=== PATIENT | male | born 1945 | race Caucasian/White ===

== ENCOUNTER 2016-03-14 09:18 | Emergency (ER) | payer MEDICARE, BC ==
[~2016-03-14] VITALS: Ht 172.7 cm; Wt 86.2 kg
[~2016-03-14 09:18] MED LIST: AMLO10TA2 PO; FLUT1DIS IH; HYDR25TA9 PO; LISI40TA PO
[2016-03-14 09:26] VITALS: BP 150/67
[2016-03-14] MEDS ORDERED: HYDROCODONE/APAP 5/325MG TABLET. PO ONE (10:00)
[2016-03-14] MEDS ORDERED: AMPICILLIN/SULBACTAM 3 GM in IV NORMAL SALINE 100ML 100 ML IV ONE (10:00)
--- NOTE | 2016-03-14 10:48 | RAD ---
Indication: Dog bite between the first and second metacarpals. Occurred one week ago. Pain and swelling. Technique: 3 views of the left hand are submitted for review. No comparison is available. Findings: There is no fracture or dislocation. There is no osseous lesion or bone destruction. There is no radiopaque foreign body. There is soft tissue swelling. There are mild degenerative changes. Impression: Negative for fracture. Negative for radiopaque foreign body.
[2016-03-14] MEDS ORDERED: HYDR-971 PO (10:59)
[2016-03-14] MEDS ORDERED: AMOX1TAB61 PO (10:59)
--- NOTE | 2016-03-14 10:59 | PHYS DOC ---
Past Medical History Past Medical History: COPD, Hypertension Past Surgical History: Other Additional Past Surgical Histo: CAROTID ARTERY SURG Additional Information: 1 PPD Alcohol Use: Heavy Additional Information: DRINKS 6 BEERS A DAY Drug Use: None Adult General Chief Complaint Chief Complaint: ANIMAL BITE HPI HPI Patient is a 70 year old female who presents with left hand pain and swelling. Patient reports his dog bit him on the hand on 03/06/16. He says he thoroughly cleaned the wound and was applying antibiotic ointment. Yesterday morning, he started having throbbing pain in the hand. This morning the pain became worse noticed increased swelling and redness. No drainage from the hand. No fever. The dog that bit him was his dog, he says it has received its rabies vaccines. Patient also reports that he last had a tetanus booster 2 years ago. He took a pill of leftover amoxicillin this morning prior to coming to ED. No other acute complaints. Review of Systems Review of Systems Constitutional: Denies fever or chills Respiratory: Denies cough or shortness of breath Cardiovascular: Denies chest pain GI: Denies abdominal pain, nausea, vomiting, or diarrhea Musculoskeletal: L hand pain and swelling Neurologic: Denies headache, focal weakness or sensory changes Current Medications Current Medications Current Medications Medications (Trade) Dose Ordered Sig/Lyndsey Start Time Stop Time Status Last Admin Dose Admin Acetaminophen/ Hydrocodone Bitart 2 tab 2 tab 1X ONCE 03/14/16 10:00 03/14/16 10:01 DC 03/14/16 10:08 2 TAB Ampicillin Sodium/ Sulbactam Sodium/ Sodium Chloride (Unasyn/Iv Sodium Chloride 0.9% 100ml) 100 ml @ 200 mls/hr 1X ONCE 03/14/16 10:00 03/14/16 10:29 DC 03/14/16 10:25 200 MLS/HR Allergies Allergies Allergies Coded Allergies Type Severity Reaction Last Updated Verified No Known Drug Allergies 12/11/14 No Physical Exam Physical Exam Constitutional: Well developed, well nourished, no acute distress, non-toxic appearance HENT: Normocephalic, atraumatic, bilateral external ears normal Eyes: EOMI, conjunctiva normal, no discharge Neck: Normal range of motion, no stridor Cardiovascular: Heart rate normal, regular rhythm, no murmur Lungs & Thorax: Bilateral breath sounds clear to auscultation Abdomen: Bowel sounds normal, soft, non-distended, no TTP Skin: Warm, dry, no rash Extremities: Dorsum of L hand swollen and erythematous; small scabbed abrasion noted; no fluctuance noted; no TTP over palmar surface/flexor tendons; full motor function and sensation to light touch preserved; 2+ radial pulse Neurologic: Alert and oriented X 3, no gross deficits noted Current Patient Data Vital Signs Vital Signs Date Time Temp Pulse Resp B/P Pulse Ox O2 Delivery O2 Flow Rate FiO2 03/14/16 10:08 18 96 Room Air 03/14/16 09:26 97.9 81 150/67 97.9 EKG EKG [] Radiology/Procedures Radiology/Procedures X-ray L hand: Impression: Negative for fracture. Negative for radiopaque foreign body. Course & Med Decision Making Course & Med Decision Making Pertinent Labs and Imaging studies reviewed. (See chart for details) Patient is 70 year old male who presents with L hand pain and swelling. Apparent cellulitis related to dog bite just over 1 week ago. Dose of unasyn ordered; patient UTD on tetanus booster so do not need to give that. Oral pain medication given for patient comfort. No evidence of abscess. Infection restricted to dorsum of hand, no evidence of flexor tenosynovitis. X-ray ordered to r/o abnormality such as retained tooth; radiologist read as above, soft tissue swelling noted. Patient reports pain is much better after meds. I discussed with him that I would like to admit him for IV abx as his hand is involved. Patient is adamant that he wants to go home. I again voiced my concern about outpatient management of this infection due to the hand involvement; he acknowledges this but remains insistent upon going home today. As such, I will discharge with rx for augmentin and pain medication; patient given strict instructions to follow up with PCP tomorrow. He was also given strict return precautions and has agreed to return immediately to the ED if there is any worsening of his hand, if he develops fever, etc. Dragon Disclaimer Dragon Disclaimer This electronic medical record was generated, in whole or in part, using a voice recognition dictation system. Departure Departure Impression: Primary Impression: Infected dog bite of hand Disposition: HOME, SELF-CARE Condition: STABLE Referrals: LOI DAVIS MD (PCP) Patient Instructions: Animal Bite Additional Instructions: Thank you for allowing us to provide care today in the Emergency Department. Take the provided medication as directed. Use caution after taking the pain medication as it can make you drowsy. Schedule a follow up appointment with your primary care doctor as soon as possible. Call first thing in the morning. Return promptly to the Emergency Department if you develop any new or concerning symptoms, such as worsening pain in hand or fever. Scripts Amoxicillin/Potassium Clav (Augmentin 875-125 Tablet)1 Each Tablet1 Tab PO BID # 20 TAB Prov:JACQUELINE NÚÑEZ MD 03/14/16 Hydrocodone/Apap 5-325 (Elsie 5-325 Tablet)1 Each Tablet1 Tab PO PRN Q6HRS PRN PAIN #20 TAB Prov:JACQUELINE NÚÑEZ MD 03/14/16 JACQUELINE NÚÑEZ MD Mar 14, 2016 10:59
== END 2016-03-14 11:12 | disposition home or self-care (01) ==
LOC: ER 09:18
DX: S61.452A Open bite of left hand, initial encounter (principal); L08.9 Local infection of the skin and subcutaneous tissue, unspecified; I10 Essential (primary) hypertension; J44.9 Chronic obstructive pulmonary disease, unspecified; F17.210 Nicotine dependence, cigarettes, uncomplicated; F10.10 Alcohol abuse, uncomplicated; W54.0XXA Bitten by dog, initial encounter; Y93.89 Activity, other specified; Y92.89 Other specified places as the place of occurrence of the external cause; Y99.8 Other external cause status
CPT/HCPCS: 73130; 96365; 99284; J0295

== ENCOUNTER → 2016-08-06 | Outpatient (CLI) | payer MEDICARE, BC ==
[~2016-08-06] MED LIST changes: +AMOX1TAB61 PO; +ASPI-482 PO; +GADOBUTROL 10 MMOL/10 ML VIAL IV ONE; +HYDR-971 PO
--- NOTE | 2016-08-06 11:03 | KCIC ---
Clinical Indications: Carotid stenosis. Exam : Carotid Duplex with Grayscale Ultrasound and Spectral and Color Doppler Analysis: PQRS Compliance Statement - Stenosis calculations for CT, MR and conventional angiography are based upon measurement of the distal ICA diameter in accordance with the NASCET methodology. Stenosis calculations for carotid ultrasound studies are derived from validated velocity criteria which are known to correlate with the NASCET methodology. Comparison study: None available. Findings: The common, internal and external carotid arteries were examined by grayscale, color and spectral Doppler ultrasound. Bilateral carotid plaque is noted. There is moderate stenosis in the left ECA. Flow in both vertebral arteries was antegrade and normal. The following are the velocities and ratios in the carotid arteries on both sides: RIGHT ICA PV: 144cm/sec RIGHT CCA PV: 87cm/sec RIGHT ICA ED: 33cm/sec RIGHT IC/CCPV: 1.66 RIGHT VERTEBRAL: antegrade flow RIGHT % STENOSIS: 50-69 percent stenosis LEFT ICA PV: 77cm/sec LEFT CCA PV: 51cm/sec LEFT ICA ED: 10cm/sec LEFT IC/CCPV: 1.51 LEFT VERTEBRAL: antegrade flow LEFT % STENOSIS: 50% <50% ICA Stenosis: PSV < 125cm/s (EDV < 40cm/s; SVR < 2.0) 50-69% ICA Stenosis: PSV < 125-229cm/s (EDV 40-99cm/s; SVR 2.0-3.9) >70% ICA Stenosis: PSV > 230cm/s (EDV >100cm/s; SVR >4.0) Impression: Bilateral carotid plaque resulting in 50 F 60 percent stenosis of the right internal carotid artery less than 50 percent stenosis on the left. Antegrade flow is noted in both vertebral arteries. Electronically signed by: Garrett Lira MD (08/06/2016 11:00 AM)
--- NOTE | 2016-08-06 12:38 | KCIC ---
MR BRAIN WITH CONTRAST Indication: Double vision TECHNIQUE: Axial diffusion-weighted imaging was obtained. Additional axial FLAIR, and axial T2 weighted images were obtained. Sagittal and axial T1-weighted imaging was obtained prior to the administration of intravenous contrast material. Additional sagittal, axial, and coronal T1-weighted imaging was obtained after the administration of gadolinium based intravenous contrast material. FINDINGS: There are few small scattered foci of subcortical FLAIR signal hyperintensity in the bilateral cerebral hemispheres. This is nonspecific but probably related to sequelae of chronic small vessel ischemic disease. No abnormal enhancement identified. No restricted diffusion to indicate an acute infarct. No evidence of acute intracranial hemorrhage. No extra-axial fluid collections are identified. There is no mass effect or midline shift. Ventricular size is appropriate. Basal cisterns are patent. Visualized flow voids are normal in course, caliber, and signal. Globes and orbits are unremarkable. There is mild mucoperiosteal thickening of the paranasal sinuses. There is partial opacification of the right mastoid air cells. IMPRESSION: No acute or recent infarct. No abnormal enhancement or mass. No acute intracranial abnormality. Mild mucoperiosteal thickening of the paranasal sinuses and partial fluid opacification of the right mastoid air cells. Electronically signed by: Garrett Lira MD (08/06/2016 12:35 PM)
== END | disposition home or self-care (01) ==
LOC: KCIC US 09:45
PROVIDERS: ATTEND Family Medicine
DX: I65.23 Occlusion and stenosis of bilateral carotid arteries (principal)
CPT/HCPCS: 70553; 93880; A9585

== ENCOUNTER → 2016-09-27 | Outpatient (CLI) | payer MEDICARE, BC ==
[~2016-09-27] MED LIST changes: -GADOBUTROL 10 MMOL/10 ML VIAL IV ONE
--- NOTE | 2016-09-27 14:24 | CARD ---
APPROVED REPORT EXAM: Two-dimensional and M-mode echocardiogram with Doppler, color Doppler with contrast. Other Information Quality : Average Rhythm : NSR INDICATION Amaurosis fugax of the left eye Echo Enhancing Agent Indication: Rule Out Septal Defect Agent/Amount Used: Agitated Saline 8mL 2D DIMENSIONS Left Atrium(2D)3.3 (1.6-4.0cm)IVSd0.9 (0.7-1.1cm) Aortic Root(2D)3.5 (2.0-3.7cm)LVDd5.1 (3.9-5.9cm) LVOT Diameter2.1 (1.8-2.4cm)PWd0.9 (0.7-1.1cm) LVDs3.3 (2.5-4.0cm)FS (%) 35.9 % SV80.7 mlLVEF(%)65.1 (>50%) Aortic Valve AoV Peak Ronnell.136.6cm/sAoV VTI31.1cm AO Peak GR.7.5mmHgLVOT Peak Ronnell.144.9cm/s AO Mean GR.5mmHgAVA (VMAX)3.58cm2 Mitral Valve MV E Icnpfaei10.2cm/sMV DECEL [id number] MV A Ylduwrdx01.2cm/sE/A Ratio1.2 MV A [id number] LEFT VENTRICLE The left ventricle is normal size. There is normal left ventricular wall thickness. Left ventricle sy stolic function is normal. The Ejection Fraction is 60-65%. There is normal LV segmental wall motion. The left ventricular diastolic function and filling is normal for age. There is no ventricular septa l defect visualized. RIGHT VENTRICLE The right ventricle is normal size. The right ventricular systolic function is normal. ATRIA The left atrium size is normal. The right atrium size is normal. The interatrial septum is intact wit h no evidence for an atrial septal defect or patent foramen ovale as noted on 2-D or Doppler imaging. Injection of bubbles documented no interatrial shunt. AORTIC VALVE The aortic valve is mildly calcified. The aortic valve is trileaflet. Doppler and Color Flow revealed no significant aortic regurgitation. There is no significant aortic valvular stenosis. MITRAL VALVE The mitral valve is normal in structure and function. There is no mitral valve stenosis. Doppler and Color Flow revealed no mitral valve regurgitation noted. TRICUSPID VALVE The tricuspid valve is normal in structure and function. Doppler and Color Flow revealed no tricuspid valve regurgitation noted. Unable to accurately estimate PA pressure. There is no tricuspid valve st enosis. PULMONIC VALVE The pulmonic valve is not well visualized. Doppler and Color Flow revealed no pulmonic valvular regur gitation. There is no pulmonic valvular stenosis. GREAT VESSELS The aortic root is normal in size. Pulmonary veins not recorded. The IVC is normal in size and collap ses >50% with inspiration. PERICARDIAL EFFUSION There is no evidence of significant pericardial effusion. Critical Notification Critical Value: No <Conclusion> Left ventricle systolic function is normal. The Ejection Fraction is 60-65%. There is normal LV segmental wall motion. There is no evidence of significant pericardial effusion. Injection of bubbles documented no interatrial shunt.
== END | disposition home or self-care (01) ==
LOC: ECHO 10:46
PROVIDERS: ATTEND Family Medicine
DX: G45.3 Amaurosis fugax (principal)
CPT/HCPCS: C8929

== ENCOUNTER → 2016-10-01 | Outpatient (CLI) | payer MEDICARE, BC ==
--- NOTE | 2016-10-01 15:06 | KCIC ---
INDICATION: Right hip pain for 2 weeks. TECHNIQUE: 2 views of the right hip and an AP view of the pelvis are submitted for review. No comparison is available. FINDINGS: There is moderate to severe narrowing of the right hip joint most notably superiorly. There is acetabular spurring. There is slight remodeling of the femoral head. No fracture or dislocation is identified. Left iliac crest is clipped from the AP pelvis. The bony pelvis appears intact. There are vascular calcifications. Degenerative changes in the left hip are mild. 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 Electronically signed by: Hamlet Bowens MD (10/01/2016 3:03 PM) [id number]
--- NOTE | 2016-10-01 15:19 | KCIC ---
INDICATION: Lumbar strain with right radiculopathy. Pain for 2 weeks. TECHNIQUE: Sagittal T1, sagittal T2, sagittal STIR, axial T1, and axial T2 sequences are provided. No comparison is available. FINDINGS: There is no malalignment. There is no marrow edema. There is no worrisome marrow lesion. There is disc desiccation, mild and most notable at L4-L5. Disc height is relatively maintained. Conus medullaris is normal in signal intensity and in position. Subcutaneous edema is noted. Only partially included is infrarenal abdominal aortic aneurysm measuring 3.7 cm transverse, AP dimension not entirely included. The numbering system assumes 5 lumbar type vertebral bodies. Findings by individual level are as follows: L1-L2, L2-L3: There is no canal or foraminal compromise. L3-L4: Minimal disc bulge and facet hypertrophy are noted with minimal foraminal narrowing. L4-L5: Mild disc bulge and mild facet and ligamentum flavum hypertrophy are noted. There is no canal stenosis, midline AP diameter of the thecal sac is 12 mm. There is mild lateral recess narrowing bilaterally. There is moderate foraminal narrowing on the right and mild to moderate foraminal narrowing on the left. There is a small left subarticular annular fissure. L5-S1: Mild disc bulge is noted with minimal foraminal narrowing. IMPRESSION: 1. Mild degenerative disc disease and facet and ligamentum flavum hypertrophy are noted in the lumbar spine. Findings are greatest at L4-L5. 2. Partially included infrarenal abdominal aortic aneurysm. Electronically signed by: Hamlet Bowens MD (10/01/2016 3:15 PM) [id number]
== END | disposition home or self-care (01) ==
LOC: KCIC MRI 14:01
PROVIDERS: ATTEND Physical Medicine & Rehabilitation
DX: M16.11 Unilateral primary osteoarthritis, right hip (principal); S39.012A Strain of muscle, fascia and tendon of lower back, initial encounter; M51.36 Other intervertebral disc degeneration, lumbar region; X58.XXXA Exposure to other specified factors, initial encounter; Y93.89 Activity, other specified; Y92.89 Other specified places as the place of occurrence of the external cause; Y99.8 Other external cause status
CPT/HCPCS: 72148; 72170; 73502

== ENCOUNTER → 2016-11-08 | Outpatient (CLI) | payer MEDICARE, BC ==
[~2016-11-08] MED LIST changes: +CHOL100013 PO; +MULT1TAB52 PO; +NAPR500T3 PO; +OMEG1CAP6 PO; +PRED2.5T PO
[2016-11-08 08:47] LABS: BASO % 1 % (0-3); EOS % 4 % (0-3); HEMATOCRIT 40.4 % (39.0-53.0); HEMOGLOBIN 13.8 g/dL (13.0-17.5); LYMPH # 1.8 x10^3/uL (1.0-4.8); LYMPH % 32 % (24-48); MEAN CORPUSCULAR HEMOGLOBIN 35 pg (25-35); MEAN CORPUSCULAR HGB CONC 34 g/dL (31-37); MEAN CORPUSCULAR VOLUME 102 fL (79-100); MONO % 8 % (0-9); NEUT % 56 % (31-73); PLATELET COUNT 252 x10^3/uL (140-400); RED BLOOD COUNT 3.97 x10^6/uL (4.30-5.70); RED CELL DISTRIBUTION WIDTH 12.9 % (11.5-14.5); WHITE BLOOD COUNT 5.6 x10^3/uL (4.0-11.0)
[2016-11-08 08:57] LABS: INR 1.1 (0.8-1.1); PROTHROMBIN TIME PATIENT 13.2 SEC (11.7-14.0)
[2016-11-08 09:13] LABS: ALBUMIN 3.6 g/dL (3.4-5.0); CALCIUM 9.1 mg/dL (8.5-10.1); CREATININE 0.8 mg/dL (0.7-1.3); GFR 95.8; POTASSIUM 5.3 mmol/L (3.5-5.1)
[2016-11-08 09:38] LABS: BILIRUBIN,URINE NEGATIVE (NEG); GLUCOSE,URINE NEGATIVE (NEG); NITRITE,URINE NEGATIVE (NEG); PH,URINE 7.5; PROTEIN,URINE NEGATIVE (NEG-TRACE)
[2016-11-08 09:52] LABS: SQUAMOUS EPITHELIAL CELL,UR FEW /LPF
[2016-11-08 10:08] LABS: RBC,URINE RARE /HPF (0-2); WBC,URINE RARE /HPF (0-4)
[2016-11-08 10:09] LABS: BACTERIA,URINE FEW /HPF (0-FEW)
--- NOTE | 2016-11-08 12:17 | EKG ---
[facility] [address] [place] [address] Test Date: 2016-11-08 Test Time: 12:15:13 Pat Name: JN CARDONA Department: Room: Gender: Us Administrative Law Judge: FABIAN : 1945 Requested By: ABHIJIT OMER Order Number: [id number] Reading MD: Richie Brock Measurements Intervals [place] Rate: 62 P: MT: QRS: 66 QRSD: 80 T: 63 QT: 376 QTc: 384 Interpretive Statements SR Electronically Signed On 11-08-2016 13:46:31 CDT by Richie Brock
== END | disposition home or self-care (01) ==
LOC: SURGPAT 12:43
PROVIDERS: ATTEND Orthopaedic Surgery
DX: I10 Essential (primary) hypertension (principal); M16.11 Unilateral primary osteoarthritis, right hip; Z96.641 Presence of right artificial hip joint
CPT/HCPCS: 36415; 80048; 81001; 82040; 85025; 85610; 85651; 85730; 87641; 93005

== ENCOUNTER → 2016-11-16 | Outpatient (CLI) | payer MEDICARE, BC ==
[~2016-11-16] MED LIST changes: +IOHEXOL 240 MG/ML 50ML VIAL. PO ONE; +IOHEXOL 300 MG/ML 100ML VIAL. IV ONE
--- NOTE | 2016-11-16 10:37 | KCIC ---
CT chest, abdomen, pelvis without and with contrast History: Weight loss, smoker, 25 pound weight loss in one year, COPD Technique: Noncontrast CT imaging was performed of the chest, abdomen, pelvis. After the administration of intravenous contrast, CT imaging was performed of the chest, abdomen, pelvis. Multiplanar images are reviewed. Oral contrast was given for the CT abdomen and pelvis exam. Exposure: One or more of the following individualized dose reduction techniques were utilized for this examination: 1. Automated exposure control 2. Adjustment of the mA and/or kV according to patient size 3. Use of iterative reconstruction technique. Contrast: 100 cc Omnipaque 300 Comparison: August 01, [address], no previous CT of the abdomen and pelvis for comparison Chest CT: Findings: There is a small quantity of pericardial fluid more localized anteriorly, no adjacent enhancement. There is coronary calcification. Thoracic aortic caliber is within normal limits, no intraluminal flap. There are scattered plaque. There is no significant abnormality visualized thyroid gland. No significantly enlarged lymph nodes are identified of the chest, a few small mediastinal nodes present. There is no pneumothorax, lobar consolidation, pleural fluid. As best seen on axial images 29 and 35-37, there are now some small some nodules with indistinct margins of the superior left lower lobe in a branching distribution, largest individual nodule up to 0.4 cm. There is also new 0.4 cm nodule left lower lobe nodule with indistinct margins axial image 40. 0.5 cm right lower lobe noncalcified nodule axial image 42 series 3 is similar. There is moderate to severe centrilobular emphysema. Major airways are patent. Impression: 1. There are now some small nodules of the left lower lobe with indistinct margins, largest 0.4 cm. These are in a somewhat branching distribution. Findings are nonspecific, could be associated with various infectious etiologies including tuberculosis (post primary) in the appropriate clinical setting, also sequela of bronchiolitis or aspiration other possibilities. Small tumor emboli would be considered less likely unless known history of malignancy. Septic emboli would be considered less likely given more localized distribution. 2. There is centrilobular emphysema. 3. There is coronary calcification. CT abdomen and pelvis Findings: There are some calcifications of the renal jacki bilaterally although appear to be vascular in etiology. There is no hydronephrosis of either kidney. Both kidneys enhance symmetrically. There is a hypodense lesion of the inferior left kidney up to 1 cm, density measurements of a cyst at 9 Hounsfield units. There is no significant adrenal nodularity. There is no focal abnormality of the spleen, pancreas, or liver. The gallbladder is present without intraluminal abnormality by CT. There is infrarenal abdominal aortic aneurysm up to 3.8 cm maximal axial plane, begins about 4 cm below the left renal artery origin extending over approximately 5.3 cm in length. There is atherosclerotic calcification of the abdominal aorta, also of the proximal renal arteries and minimally near the origins of celiac and superior mesenteric arteries. There is also atherosclerotic calcification of the iliac arteries bilaterally with likely greater degree of stenoses of the common iliac artery origins bilaterally. Bowel is not significantly dilated. There is no free air or free fluid. Appendix is not clearly identified if still present. There is multilevel lumbar facet degenerative change greater inferiorly. There is more advanced osteoarthritic change of the right hip. Impression: 1. No acute abnormality is identified of the abdomen or pelvis, no significant lymphadenopathy. 2. There is infrarenal abdominal aortic aneurysm up to 3.8 cm maximal axial dimension. 3. There are stenoses of the common iliac arteries near origins. Electronically signed by: Pedro Singletary MD (11/16/2016 10:33 AM) [facility]
== END | disposition home or self-care (01) ==
LOC: KCIC CT 08:26
PROVIDERS: ATTEND Family Medicine
DX: I71.4 Abdominal aortic aneurysm, without rupture (principal); J44.9 Chronic obstructive pulmonary disease, unspecified; R63.4 Abnormal weight loss; F17.210 Nicotine dependence, cigarettes, uncomplicated
CPT/HCPCS: 71270; 74178; Q9966; Q9967

== ENCOUNTER → 2016-11-17 | Outpatient (CLI) | payer MEDICARE, BC ==
[~2016-11-17] MED LIST changes: -IOHEXOL 240 MG/ML 50ML VIAL. PO ONE; -IOHEXOL 300 MG/ML 100ML VIAL. IV ONE
--- NOTE | 2016-11-17 14:40 | RESP ---
DATE OF SERVICE: 11/17/2016 ATTENDING PHYSICIAN: Dr. Kellogg. The patient's FVC was 4.27 which is 103% predicted, FEV1 1.97 which is 65% predicted, the FEV1/FVC ratio was reduced and was 46% predicted. There was no significant change post-bronchodilator. Lung volume showed a total lung capacity of 155% predicted, residual volume 250% predicted. Diffusion capacity 62% predicted. IMPRESSION: 1. Moderate obstructive airway disease. 2. No response to bronchodilators. 3. Lung volumes consistent with hyperinflation and air trapping. 4. Mild to moderate reduction in diffusion capacity. NICOL CABEZAS MD DR: SUZI/anushka JOB#: [id number] / [id number] LOI Cunha MD
== END | disposition home or self-care (01) ==
LOC: PF 10:29
PROVIDERS: ATTEND Family Medicine
DX: J44.9 Chronic obstructive pulmonary disease, unspecified (principal)
CPT/HCPCS: 94060; 94729

== ENCOUNTER 2016-11-30 05:45 | Inpatient (IN) | payer MEDICARE, BC ==
[~2016-11-30] VITALS: Ht 172.7 cm; Wt 80.3 kg
[2016-11-30] VITALS (10 sets, daily range): BP systolic 91–123; BP diastolic 44–69
[2016-11-30] MEDS ORDERED: CELECOXIB 200 MG CAPSULE. PO PRN (06:00)
[2016-11-30] MEDS ORDERED: TRANEXAMIC ACID 1,000 MG in IV NS 50ML -- 1ST BAG INJ ONE (06:00)
[2016-11-30] MEDS ORDERED: HYDROcodone/APAP 7.5/325MG 1 TAB TABLET PO PRN (06:00)
[2016-11-30] MEDS ORDERED: MORPHINE SULFATE 5 MG, KETOROLAC 30 MG, ROPIVacaine 0.5% PF 60 ML, EPINEPHrine 0.5 MG i... INT ART ONE ×5 (06:00)
[2016-11-30] MEDS ORDERED: MORPHINE SULFATE 2 MG/ML DISP.SYRIN. IV PRN ×2 (07:00→07:30)
[2016-11-30] MEDS ORDERED: PROCHLORPERAZINE 10 MG/2 ML VIAL. IV PRN ×2 (07:00→07:30)
[2016-11-30] MEDS ORDERED: HYDROmorphone 2 MG/ML VIAL IV PRN (07:00)
[2016-11-30] MEDS ORDERED: IV RINGERS,LACTATED 1000ML 1,000 ML IV SCH (07:00)
[2016-11-30] MEDS ORDERED: LIDOCAINE 1% 1 ML SYRINGE. ID PRN (07:00)
[2016-11-30] MEDS ORDERED: fentaNYL PF VIAL 100 MCG/2 ML VIAL IV PRN ×3 (07:00→07:30)
[2016-11-30] MEDS ORDERED: ONDANSETRON PF 4 MG/2 ML VIAL. IV PRN (07:00)
[2016-11-30 07:09] LABS: INR 1.1 (0.8-1.1); PROTHROMBIN TIME PATIENT 13.3 SEC (11.7-14.0)
[2016-11-30] MEDS ORDERED: LIDOCAINE 2% PF Vial for OR 5 ML VIAL. ONE (07:14)
[2016-11-30] MEDS ORDERED: ONDANSETRON PF 4 MG/2 ML VIAL. ONE (07:14)
[2016-11-30] MEDS ORDERED: MIDAZOLAM HCL/PF 2 MG/2 ML VIAL. ONE (07:14)
[2016-11-30] MEDS ORDERED: PROPOFOL 20 ML IV ONE (07:14)
[2016-11-30] MEDS ORDERED: fentaNYL PF VIAL 100 MCG/2 ML VIAL ONE ×4 (07:14→10:52)
[2016-11-30] MEDS ORDERED: DEXAMETHASONE SOD PHOS 20 MG/5 ML VIAL. ONE (07:14)
[2016-11-30] MEDS ORDERED: FAMOTIDINE 20 MG/2 ML VIAL ONE (07:14)
[2016-11-30] MEDS ORDERED: ROCURONIUM 100 MG/10 ML VIAL. ONE (07:17)
[2016-11-30] MEDS ORDERED: CALCIUM CARBONATE 500 MG TAB.CHEW PO PRN (07:30)
[2016-11-30] MEDS ORDERED: MORPHINE SULFATE 4 MG/ML DISP.SYRIN. IV PRN (07:30)
[2016-11-30] MEDS ORDERED: oxyCODONE/APAP 7.5/325 1 TAB TABLET PO PRN (07:30)
[2016-11-30] MEDS ORDERED: oxyCODONE/APAP 5/325 1 TAB TABLET PO PRN (07:30)
[2016-11-30] MEDS ORDERED: DEXTROSE 50% 25 GM / 50ML DISP.SYRIN. IV PRN (07:30)
[2016-11-30] MEDS ORDERED: 0.9 % SODIUM CHLORIDE 10 ML DISP.SYRIN. IV PRN (07:30)
[2016-11-30] MEDS ORDERED: ACETAMINOPHEN 325 MG TABLET. PO PRN (07:30)
[2016-11-30] MEDS ORDERED: diphenhydrAMINE 50 MG/ML VIAL IV PRN (07:30)
[2016-11-30] MEDS ORDERED: HYDROcodone/APAP 10/325 1 TAB TABLET PO PRN (07:30)
[2016-11-30] MEDS ORDERED: ZOLPIDEM 5 MG TABLET. PO PRN (07:30)
[2016-11-30] MEDS ORDERED: PHENYLEPHRINE in 0.9% NACL PF 1 MG/10 ML DISP.SYRIN. IV ONE (07:57)
[2016-11-30] MEDS ORDERED: TRANEXAMIC ACID 1,000 MG in IV NS 50ML -- 2ND BAG INJ ONE (08:00)
[2016-11-30] MEDS ORDERED: ePHEDrine PF IN SALINE 50 MG/5 ML DISP.SYRIN IV ONE (08:18)
[2016-11-30] MEDS: SENNOSIDES/DOCUSATE 8.6/50MG TABLET. PO SCH (09:00)
[2016-11-30] MEDS: MULTIVITAMIN with MINERAL TABLET. PO SCH (09:00)
[2016-11-30] MEDS ORDERED: GLYCOPYRROLATE 1 MG/5 ML VIAL. ONE (09:26)
[2016-11-30] MEDS ORDERED: NEOSTIGMINE METHYLSULFATE 5 MG/5 ML SYRINGE. ONE (09:27)
[2016-11-30] MEDS ORDERED: 0.9 % SODIUM CHLORIDE 50 ML VIAL. IJ ONE ×2 (09:30→10:24)
[2016-11-30] MEDS ORDERED: VASOPRESSIN 20 UNIT/ML VIAL. ONE (09:30)
[2016-11-30] MEDS ORDERED: SEVOFLURANE > 120 MINUTES. IH ONE ×3 (10:05→10:24)
--- NOTE | 2016-11-30 10:37 | PDOC4 ---
Operative Note Operative Note Date of surgery: 11/30/2016 Preoperative diagnosis degenerative joint disease right hip Postoperative diagnosis: Same Procedure: Right total hip arthroplasty anterior approach Surgeon: Latesha Assist: Madelin Anesthesia: Gen. endotracheal Estimated blood loss 250 mL Complications: None Specimens: Femoral head to pathology Operative indications: Roberto Carlos is a 71-year-old male with progressive right hip pain unresponsive to nonoperative treatment and has severe degenerative changes on x-ray. I had gone over with him nonoperative treatment options as well as the possibility of total hip arthroplasty risks benefits postoperative course including the possibility of leg length inequality infection premature wear or loosening instability nerve or blood vessel damage medical or other anesthetic consultations among others all his questions were answered consent was obtained and he agrees to proceed with operative evaluation and treatment. Operative text: Patient was identified procedure verified patient placed in the supine position on the [place] fracture table after adequate amounts of general endotracheal anesthesia were administered and traction boots were placed all bony prominences are well-padded. After timeout was performed patient procedure identified and verified leg lengths were verified under fluoroscopy and the right hip was prepped and draped in standard sterile fashion. An incision was made just distal and lateral to the anterior superior iliac spine along the line of the tensor fascia agustina which was brought laterally rectus femoris was brought medially and circumflex vessels were coagulated with the aqua Mantis device hip capsule was split in a T fashion and femoral neck cut was made under fluoroscopic guidance with a napkin ring of bone removed and femoral head was removed and sent for pathology contents of the fovea were excised as was the labrum and reaming carried out up to a size 55 after measuring a size 52 head. A size 56 ingrowth acetabular cup was impacted into place under fluoroscopic guidance with anatomic version and a single superior screw was placed with excellent bite obtained a size 40 standard liner was placed posterior capsular release was carried out preserving the external rotators. The leg was brought into extension external rotation and adduction and the femur was prepared with the rattail rasp box osteotome and successive size broaches up to a size 6 which was noted to have excellent fit and stability a standard neck length was trial fit with a 0 head extension and then with a +4 to reproduce leg length and offset on fluoroscopic views as well as stability. Excellent stability was noted throughout range of motion, trial components were removed irrigation carried out normal saline solution and a size 6 [employer] F sticktight coated stem was tapped into place and a +4 Oxinium head tapped in place to engage the Brand taper and was reduced and had equivalent stability leg length and offset observed on the trialing. Thorough irrigation again carried out normal saline solution pain catheter mixture was injected into the joint capsule and surrounding areas pain catheter was placed as well as a Hemovac drain closure of the fascia accomplished with #1 PDS strata fix suture subcutaneous closure with buried Vicryl suture subcuticular closure with 3-0 Monocryl strata fix and a gordo dressing. Patient was returned recovery room in stable condition having tolerated procedure well. Please note that Kelli hutson assist was present for prepping draping assisting with retraction for the procedure and skin closure ABHIJIT OMER MD Nov 30, 2016 10:35
[2016-11-30] MEDS: fentaNYL PF VIAL 100 MCG/2 ML VIAL IV PRN ×2 (10:58→15:16)
--- NOTE | 2016-11-30 11:06 | RAD ---
Portable pelvis, 11/30/2016: History: Postop evaluation Comparison is made to a study from 10/01/2016. A right total hip prosthesis has been inserted in satisfactory position. A surgical drain overlies the operative site. There are scattered arterial calcifications. There is no evidence of a retained surgical instrument, needle or radiopaque sponge on this single view. IMPRESSION: No significant postoperative abnormality is detected.
[2016-11-30] MEDS: IV DEXTROSE 5 %-0.45 % NACL 1,000 ML IV SCH (13:27)
[2016-11-30] MEDS: NICOTINE 21MG PATCH. TD SCH (13:28)
[2016-11-30] MEDS ORDERED: WARFARIN 7.5 MG TABLET. PO ONE (16:00)
[2016-11-30] MEDS: FERROUS SULFATE 325 MG TABLET. PO SCH (17:08)
[2016-11-30] MEDS: KETOROLAC 30 MG, BUPIVACAINE MPF 0.25% 20 ML, EPINEPHrine 0.5 MG in TOTAL VOLUME SYRING... INT ART SCH (17:10)
[2016-11-30] MEDS: CELECOXIB 200 MG CAPSULE. PO SCH (21:20)
[2016-12-01] MEDS: IV DEXTROSE 5 %-0.45 % NACL 1,000 ML IV SCH ×3 (00:18→19:50)
[2016-12-01 03:22] VITALS: BP 98/50
[2016-12-01] MEDS: HYDROcodone/APAP 7.5/325MG 1 TAB TABLET PO PRN ×2 (04:00→16:06)
[2016-12-01] MEDS: KETOROLAC 30 MG, BUPIVACAINE MPF 0.25% 20 ML, EPINEPHrine 0.5 MG in TOTAL VOLUME SYRING... INT ART SCH (05:39)
[2016-12-01] MEDS ORDERED: MAGNESIUM HYDROXIDE 2,400 MG/30 ML ORAL.SUSP. PO PRN (06:00)
[2016-12-01 06:28] VITALS: BP 100/55
[2016-12-01 07:23] LABS: INR 1.7 (0.8-1.1); PROTHROMBIN TIME PATIENT 19.2 SEC (11.7-14.0)
[2016-12-01 07:56] LABS: HEMATOCRIT 31.4 % (39.0-53.0); HEMOGLOBIN 10.8 g/dL (13.0-17.5)
[2016-12-01] MEDS: FERROUS SULFATE 325 MG TABLET. PO SCH ×2 (08:47→16:51)
[2016-12-01] MEDS: MULTIVITAMIN with MINERAL TABLET. PO SCH (08:47)
[2016-12-01] MEDS: CELECOXIB 200 MG CAPSULE. PO SCH ×2 (08:47→21:10)
[2016-12-01] MEDS: SENNOSIDES/DOCUSATE 8.6/50MG TABLET. PO SCH (08:47)
[2016-12-01] MEDS: NICOTINE 21MG PATCH. TD SCH (08:48)
--- NOTE | 2016-12-01 10:07 | PDOC ---
PROGRESS NOTES Subjective Subjective Problems overnight:Doing well pain controlled, hip muscles feel tight , walked a bunch yesterday, wants to go home early if possible Objective Vital Signs Vital Signs Date Time Temp Pulse Resp B/P (MAP) Pulse Ox O2 Delivery O2 Flow Rate FiO2 12/01/16 08:00 Room Air 12/01/16 06:28 97.6 62 20 100/55 (70) 97 97.6 11/30/16 15:00 2.0 Physical Exam Hemovac drain and pain catheter intact leg lengths equal distal neurovascular status intact. Hip range of motion mild muscular stiffness as expected. Dressing clean dry intact Labs Laboratory Tests Test 11/30/16 06:45 12/01/16 06:30 12/01/16 06:50 Prothrombin Time 13.3 SEC (11.7-14.0) 19.2 SEC (11.7-14.0) Prothromb Time International Ratio 1.1 (0.8-1.1) 1.7 (0.8-1.1) Activated Partial Thromboplast Time 25 SEC (24-38) Hemoglobin 10.8 g/dL (13.0-17.5) Hematocrit 31.4 % (39.0-53.0) Mean Corpuscular Hemoglobin Concent 34 g/dL (31-37) Laboratory Tests Test 12/01/16 06:30 12/01/16 06:50 Prothrombin Time 19.2 SEC (11.7-14.0) Prothromb Time International Ratio 1.7 (0.8-1.1) Hemoglobin 10.8 g/dL (13.0-17.5) Hematocrit 31.4 % (39.0-53.0) Mean Corpuscular Hemoglobin Concent 34 g/dL (31-37) Imaging Intraoperative and postoperative x-rays show excellent positioning of the right total hip arthroplasty with equal leg lengths Assessment Assessment POD# [1], S/P [right total hip arthroplasty] Problems: Plan Plan of Care Coumadin as directed by anticoagulation clinic Weightbearing as tolerated no hip precautions due to anterior approach Patient is doing very well, will accelerate therapy and on track for discharge tomorrow with home and outpatient physical therapy ABHIJIT OMER MD Dec 01, 2016 10:07
[2016-12-01] MEDS ORDERED: MORPHINE SULFATE 4 MG/ML DISP.SYRIN. IV PRN (11:17)
[2016-12-01] MEDS ORDERED: WARFARIN 2 MG TABLET. PO ONE (16:00)
[2016-12-01] MEDS ORDERED: BISACODYL 10 MG SUPP.RECT. PR PRN (16:00)
[2016-12-01 18:45] VITALS: BP 121/56
[2016-12-02 04:53] LABS: INR 1.9 (0.8-1.1); PROTHROMBIN TIME PATIENT 20.4 SEC (11.7-14.0)
[2016-12-02 05:41] VITALS: BP 116/66
[2016-12-02 07:32] LABS: HEMATOCRIT 32.9 % (39.0-53.0); HEMOGLOBIN 11.3 g/dL (13.0-17.5)
[2016-12-02] MEDS: FERROUS SULFATE 325 MG TABLET. PO SCH (08:00)
[2016-12-02] MEDS: MULTIVITAMIN with MINERAL TABLET. PO SCH (08:26)
[2016-12-02] MEDS: HYDROcodone/APAP 7.5/325MG 1 TAB TABLET PO PRN (08:27)
[2016-12-02] MEDS: NICOTINE 21MG PATCH. TD SCH (08:29)
[2016-12-02] MEDS: CELECOXIB 200 MG CAPSULE. PO SCH (09:00)
[2016-12-02] MEDS: SENNOSIDES/DOCUSATE 8.6/50MG TABLET. PO SCH (09:00)
[2016-12-02] MEDS ORDERED: WARFARIN 2.5 MG TABLET. PO ONE (13:00)
[2016-12-02 14:29] VITALS: BP 125/67
--- NOTE | 2016-12-02 15:15 | PDOC ---
ORTHO PROGRESS NOTES Subjective Patient is doing well, going home today after afternoon therapy Post-op Day: 2 (S/P right CEASAR) Vitals Vital Signs Date Time Temp Pulse Resp B/P (MAP) Pulse Ox O2 Delivery O2 Flow Rate FiO2 12/02/16 14:29 97.4 75 16 125/67 (86) 97.4 12/02/16 08:26 Room Air 12/02/16 05:41 94 Labs Laboratory Tests Test 12/01/16 06:30 12/01/16 06:50 12/02/16 03:55 Prothrombin Time 19.2 SEC (11.7-14.0) 20.4 SEC (11.7-14.0) Prothromb Time International Ratio 1.7 (0.8-1.1) 1.9 (0.8-1.1) Hemoglobin 10.8 g/dL (13.0-17.5) 11.3 g/dL (13.0-17.5) Hematocrit 31.4 % (39.0-53.0) 32.9 % (39.0-53.0) Mean Corpuscular Hemoglobin Concent 34 g/dL (31-37) 34 g/dL (31-37) Laboratory Tests Test 12/02/16 03:55 Hemoglobin 11.3 g/dL (13.0-17.5) Hematocrit 32.9 % (39.0-53.0) Mean Corpuscular Hemoglobin Concent 34 g/dL (31-37) Prothrombin Time 20.4 SEC (11.7-14.0) Prothromb Time International Ratio 1.9 (0.8-1.1) Notes Patient is awake and alert. Breathing unlabored, no acute distress. Ambulates with the assistance of a walker. Incision well approximated, no drainage. Neurovascular intact Problems: (1) Degenerative joint disease of right hip Assessment and Plan DC home with home health today Follow-up in 2 weeks Problem Qualifiers (1) Degenerative joint disease of right hip: Osteoarthritis type: primary Qualified Codes: M16.11 - Unilateral primary osteoarthritis, right hip MALACHI CRUZ APRN Dec 02, 2016 15:15
--- NOTE | 2016-12-02 17:30 | PATHOLOGY ---
PATHOLOGY REPORT * * * * * * * * FINAL DIAGNOSIS: Femoral head, right anterior total hip arthroplasty: - Avascular necrosis and advanced degenerative arthritis. (JPM:; 12/02/2016) REPORT ELECTRONICALLY SIGNED BY: Monty Pollock M.D. DATE/TIME: 12/02/2016 17:29 * * * * * * * * GROSS PATHOLOGY: Received in formalin labeled "Roberto Carlos Gomez, right hip bone and tissue," is a femoral head measuring 5.2 x 5.2 x 4.6 cm in greatest dimensions. The articular surface is pale bueno and granular in appearance with a slight amount of eburnation. Sectioning the bone reveals light bueno cut surfaces. [employer] tissue is submitted in cassette A1, following decalcification. (CAA; 12/01/2016) INITIAL CPT CODE(S): A; 46275, 92746 Professional services performed [place] [facility] [place] [address] Technical services performed by [facility] at [address] [place] [address], [facility] [address] [address]. SPECIMEN(S) RECEIVED: A.Right hip bone and tissue CLINICAL HISTORY: OA PATIENT: ROBERTO CARLOS GOMEZ /AGE: 3 1945 (Age: 71) PATIENT #: [id number] ALT CASE #: SPECIMEN COLLECTION DATE: 11/30/2016 SPECIMEN RECEIVED DATE: 11/30/2016 [facility] - [address] [place] [address] - PHONE: [phone] * * * END OF REPORT * * *
--- NOTE | 2016-12-03 07:49 | DS ---
DATE OF DISCHARGE: 12/02/2016 DATE OF ADMISSION: 11/30/2016 DATE OF DISCHARGE: 12/02/2016 PRINCIPAL DIAGNOSIS: Degenerative joint disease, right hip. PROCEDURE: Right total hip arthroplasty. FOLLOWUP: With Dr. Charlton in 2 weeks. DISPOSITION: Home with home health. DISCHARGE INSTRUCTIONS: ACTIVITY: Weightbearing as tolerated. No hip precautions secondary to anterior approach. Report any redness, drainage, fever or chills. DISCHARGE MEDICATIONS: Include Coumadin as directed by anticoagulation clinic, and [place] 7.5/325 one p.o. q. 6 hours p.r.n. pain. Resume home medications. BRIEF DESCRIPTION OF HOSPITAL COURSE: The patient underwent an uncomplicated right total hip arthroplasty with anterior approach, progressed well with physical therapy. Hemoglobin was stable at 10.8. He had good pain control, remained medically stable, progressed through his ambulation and activities of daily living with just minimal discomfort and a tight feeling in the hip and was discharged home in stable condition. ABHIJIT CHARLTON MD DR: MODESTO/nts JOB#: [id number] / [id number]
== END 2016-12-02 14:51 | disposition home health service (06) | DRG 470 ==
LOC: OPSVCIP 05:45 → 4 SOUTHEST 11:38
PROVIDERS: ADMIT Orthopaedic Surgery; ATTEND Orthopaedic Surgery
PROC: 0SR90JZ Replacement of Right Hip Joint with Synthetic Substitute, Open Approach (ICD-10-PCS; principal; 2016-11-30 07:30)
DX: M16.11 Unilateral primary osteoarthritis, right hip (principal); J44.9 Chronic obstructive pulmonary disease, unspecified; I10 Essential (primary) hypertension; E78.5 Hyperlipidemia, unspecified; G47.9 Sleep disorder, unspecified; K21.9 Gastro-esophageal reflux disease without esophagitis; Z90.49 Acquired absence of other specified parts of digestive tract
CPT/HCPCS: 36415; 72170; 76000; 85014; 85018; 85610; 85730; 86850; 86900; 86901; 88304; 88311; C1713; C1887; J0171; J0690; J1100; J1885; J2250; J2270; J2370; J2405; J2704; J2710; J2795; J3010; J3490; J7030; J7120; S0028; 97116; 97150; 97530; 97535; J2001

== ENCOUNTER → 2017-01-27 | Outpatient (CLI) | payer MEDICARE, BC ==
[~2017-01-27] MED LIST changes: +IOHEXOL 300 MG/ML 100ML VIAL. IV ONE; -NAPR500T3 PO; +NAPR500T4 PO
--- NOTE | 2017-01-27 10:50 | RAD ---
CTA neck 01/27/2017 Clinical indication: Bilateral carotid arterial occlusion or Graeff comparison: MRI head 08/06/2016 Technique: Multiple CTA images of the neck were obtained following the intravenous menstruation of 75 mL Omnipaque 300. MIPS were obtained of the neck. PQRS Compliance Statement: One or more of the following individualized dose reduction techniques were utilized for this examination: 1. Automated exposure control 2. Adjustment of the mA and/or kV according to patient size 3. Use of iterative reconstruction technique Findings: CTA neck: There is conventional three-vessel arch anatomy. There is calcified atheromatous disease at the origin of the great vessels, patent. There is mild probably soft plaque throughout the left common carotid without high-grade narrowing. There is marked calcified plaque at the origin of the left internal carotid artery which makes evaluation for narrowing difficult with estimated at least 90% stenosis or occlusion by NASCET criteria . There is high-grade narrowing or occlusion at the origin of the left external carotid artery with distal opacification. There is moderate, a soft plaque throughout the mid and distal left internal carotid artery with only faint opacification. There is mild predominantly soft plaque of the right common carotid artery which remains patent. There is moderate mixed atheromatous disease at the origin of the right internal carotid artery with mild, less than 50% narrowing. There is distal opacification of the right internal carotid artery with scattered calcified plaque. There is calcified plaque at the origin of the left vertebral artery which remains patent. There is calcified plaque at the origin of the right vertebral artery which remains patent. There is a diminutive right C4 segment which remains opacified. There is moderate centrilobular emphysema in the visualized lung bases. Multilevel cervical spondylosis with prominent anterior flowing osteophytes throughout the cervical and visualized upper thoracic spine compatible with DISH. Impression: 1. Calcified plaque at the origin of the left internal carotid artery which limits evaluation for degree of narrowing. There is estimated either 90% narrowing or complete occlusion. 2. There is diffuse soft plaque throughout the mid and distal left internal carotid artery which is only faintly opacified. 3. Mild mixed atheromatous disease at the origin of the right internal carotid artery without significant stenosis. 4. High-grade narrowing or occlusion at the origin of the left external carotid artery. 5. Moderate pulmonary emphysema.
== END | disposition home or self-care (01) ==
LOC: CT 08:52
PROVIDERS: ATTEND Surgery
DX: I65.23 Occlusion and stenosis of bilateral carotid arteries (principal); J44.9 Chronic obstructive pulmonary disease, unspecified; I10 Essential (primary) hypertension; Z87.891 Personal history of nicotine dependence
CPT/HCPCS: 70498

== ENCOUNTER 2017-08-25 15:30 | Emergency (ER) | payer MEDICARE, BC | END 2017-08-25 16:25 | disposition home or self-care (01) | LOC: ER 16:25 | DX: L03.115 Cellulitis of right lower limb (principal); S70.361A Insect bite (nonvenomous), right thigh, initial encounter; I10 Essential (primary) hypertension; J44.9 Chronic obstructive pulmonary disease, unspecified; W57.XXXA Bitten or stung by nonvenomous insect and other nonvenomous arthropods, initial encounter; Y93.89 Activity, other specified; Y99.8 Other external cause status; Y92.89 Other specified places as the place of occurrence of the external cause | CPT/HCPCS: 99283 ==

== ENCOUNTER → 2017-10-19 | Outpatient (CLI) | payer MEDICARE, BC | END | disposition home or self-care (01) | LOC: KCIC US 09:35 | DX: I65.23 Occlusion and stenosis of bilateral carotid arteries (principal); J44.9 Chronic obstructive pulmonary disease, unspecified; I71.4 Abdominal aortic aneurysm, without rupture; I70.8 Atherosclerosis of other arteries; I10 Essential (primary) hypertension; R91.8 Other nonspecific abnormal finding of lung field; E78.5 Hyperlipidemia, unspecified; Z87.891 Personal history of nicotine dependence | CPT/HCPCS: 71250; 76770; 93880 ==

== ENCOUNTER → 2017-10-28 | Outpatient (CLI) | payer MEDICARE, BC ==
[2017-08-25 15:35] VITALS: BP 139/64
[~2017-10-28] MED LIST changes: +DOXY100T PO; +LISI-130 PO; -LISI40TA PO; +NAPR-514 PO; -NAPR500T4 PO
--- NOTE | 2017-10-28 17:27 | RAD ---
CT angiogram of the neck with intravenous contrast History: Abnormal carotid Doppler. Comparison: CT angiography neck January 27, 2017. Technique: After administration of intravenous contrast, 75 mL Omnipaque-300, helical CT angiogram of the neck with attention to the arteries was performed. Axial 2-D reconstructions were obtained. Sagittal and coronal 3-D MIPS were obtained of the arteries. Rotating 3-D volume rendered reconstructions of the arteries were also obtained. Exposure: One or more of the following individualized dose reduction techniques were utilized for this examination: 1. Automated exposure control 2. Adjustment of the mA and/or kV according to patient size 3. Use of iterative reconstruction technique Findings: Conventional three-vessel aortic arch is seen. Right brachiocephalic artery demonstrates moderate calcified and noncalcified atherosclerotic plaquing. Right common carotid artery is patent. There is presence of calcified and noncalcified plaquing at the carotid bulb extending into the proximal right internal carotid artery. The origin of the proximal right internal carotid artery demonstrates irregular atherosclerotic plaquing which is somewhat ulcerated appearance. There is focal 50% luminal diameter stenosis of the proximal right internal carotid artery with length of stenosis estimated to measure 5 mm. The area of stenosis is located about 2.5 cm distal to the origin of the right internal carotid artery. The remainder of the right internal carotid artery is patent and is without focal stenosis. Right carotid siphon demonstrates mild calcified atherosclerotic plaquing. Origin of the left common carotid artery demonstrates mild calcified and noncalcified atherosclerotic plaquing although this is thought to create only approximately 40% of luminal diameter stenosis. Heavy, calcified atherosclerotic plaquing is seen at the left carotid bulb extending into the proximal left internal carotid artery. Lumen of the proximal left internal carotid artery is not well evaluated secondary to the calcification. Distal to the calcified plaquing, the lumen of the left internal carotid artery is diffusely small (has appearance of a string sign). The diffuse narrowing is estimated to be about 90% of the expected luminal diameter. Left carotid siphon demonstrates calcified atherosclerotic plaquing. Origin of the left external carotid artery is also difficult to assess, but also probably demonstrates a high-grade stenosis of the about 90%. The cervical portions of both vertebral arteries are patent. Left vertebral artery is dominant. There is high-grade stenosis of the origin of the left vertebral artery secondary to atherosclerotic plaquing. Stenosis at the origin of the left vertebral artery is estimated at 75 % of luminal diameter. Airway is patent. Bilateral parotid and submandibular glands appear symmetric. Thyroid is symmetric. Images of the upper chest demonstrate mild-moderate emphysema. Multiple bulky flowing anterior osteophytes are seen involving the cervical spine, compatible changes of DISH. Impression: 1. CT angiogram of the neck is similar to previous study. 2. Large amount of calcified plaquing is seen at the left carotid bulb. The left internal carotid artery is opacified but demonstrates diffuse, markedly decreased luminal size, estimated at about 90% diffuse luminal diameter stenosis. This is similar to previous study. 3. There is irregular calcified and noncalcified plaquing involving the carotid bulb which has appearance of ulcerated plaquing, similar to previous study. There is focal 50% luminal diameter stenosis of the proximal right internal carotid artery; this focus of stenosis is estimated to be located approximately 2.5 cm distal to the origin of the right internal carotid artery. 4. There is suspected high-grade stenosis of the origin of the left external carotid artery. 5. Dominant left vertebral artery. Calcified atherosclerotic plaquing is seen at the origin of the left vertebral artery; plaquing is estimated to create 75% focal luminal diameter stenosis the origin of the left internal carotid artery. 6. Pulmonary emphysema. 7. DISH. Stenosis calculations for CT, MR and conventional angiography are based upon measurement of the distal ICA diameter in accordance with the NASCET methodology. Stenosis calculations for carotid ultrasound studies are derived from validated velocity criteria which are known to correlate with the NASCET methodology. Electronically signed by: Jeevan Wolfe MD (10/28/2017 5:23 PM) [place] [id number]
== END | disposition home or self-care (01) ==
LOC: CT 10:23
PROVIDERS: ATTEND Family Medicine
DX: I65.23 Occlusion and stenosis of bilateral carotid arteries (principal); I67.2 Cerebral atherosclerosis; J43.8 Other emphysema; M48.12 Ankylosing hyperostosis [Forestier], cervical region; I10 Essential (primary) hypertension; E78.5 Hyperlipidemia, unspecified; K21.9 Gastro-esophageal reflux disease without esophagitis; Z87.891 Personal history of nicotine dependence
CPT/HCPCS: 70498; Q9967

== ENCOUNTER → 2018-05-11 | Outpatient (CLI) | payer MEDICARE, BC ==
[2017-08-25 15:35] VITALS: BP 139/64
[~2018-05-11] MED LIST changes: -AMLO10TA2 PO; +AMLO10TA8 PO; +HYDR-2145 PO; +HYDR-3164 PO; -HYDR-971 PO; -HYDR25TA9 PO; -IOHEXOL 300 MG/ML 100ML VIAL. IV ONE
--- NOTE | 2018-05-11 09:48 | RAD ---
EXAM: Abdominal aortic sonogram. HISTORY: Aneurysm. TECHNIQUE: Sonographic imaging of the abdominal aorta was performed. COMPARISON: CT dated 10/28/2017. FINDINGS: The proximal abdominal aorta is obscured due to bowel gas. The mid abdominal aorta measures 2.3 cm in caliber and the distal abdominal aorta measures 3.8 cm in caliber. The common iliac arteries are normal in caliber. There is aortobiiliac atherosclerotic plaque. There are increased peak systolic velocities within the right greater than left common iliac arteries and within the distal abdominal aorta likely due to a component of stenosis. IMPRESSION: 1. Distal abdominal aortic aneurysm measuring 3.8 cm. This measured 3.6 cm on the study dated 10/19/2017. 2. Aortobiiliac atherosclerosis with elevated peak systolic velocities within the distal aorta and iliac bifurcation likely due to hemodynamically significant stenosis. Electronically signed by: Susan Ahumada MD (05/11/2018 9:45 AM) [id number]
--- NOTE | 2018-05-11 12:55 | RAD ---
Neck MRA without contrast History: Bilateral carotid stenosis Technique: [id number] and postcontrast MR angiography was performed of the neck. Comparison: CTA neck October 28, 2017 Findings: Determination of any degree of stenosis is based on NASCET criteria. There is antegrade flow in the vertebral arteries bilaterally, dominant left vertebral artery as seen previously. Previously there was visualization of the left common carotid artery although now only variably segmentally visualized. There is very diminutive caliber of left cervical internal carotid artery as seen previously, proximally poorly visualized near suspected carotid bulb. There is again critical narrowing at level of the carotid bulb and proximal left internal carotid artery although better seen on previous exam. There is again moderate narrowing of the proximal right internal carotid artery. Impression: 1. Comparing with the October 2017 exam, there is now variable segmental visualization of the left common carotid artery which was previously seen be patent. While findings could be related to component of reversal of flow, findings may also be due to progression of severe narrowing. There is again critical narrowing or segmental occlusion near the suspected left carotid bulb which is poorly distinguished on this exam, also segmental nonvisualization of the very diminutive left cervical internal carotid artery near suspected carotid bulb. There is again moderate stenosis of the proximal right internal carotid artery. Findings left on voicemail for medical records receptionist for Dr. Kellogg at 05/11/2018 12:50 PM. Electronically signed by: Pedro Singletary MD (05/11/2018 12:52 PM) [id number]
== END | disposition home or self-care (01) ==
LOC: US 08:52
PROVIDERS: ATTEND Family Medicine
DX: I71.4 Abdominal aortic aneurysm, without rupture (principal); I65.23 Occlusion and stenosis of bilateral carotid arteries
CPT/HCPCS: 70547; 76770

== ENCOUNTER → 2019-03-26 | Outpatient (CLI) | payer MEDICARE, BC ==
[2017-08-25 15:35] VITALS: BP 139/64
--- NOTE | 2019-03-26 11:28 | KCIC ---
EXAM: Chest, 2 views. HISTORY: Wheezing. COMPARISON: 10/17/2017 FINDINGS: 2 views of chest are obtained. There is diffuse interstitial infiltrate likely superimposed on chronic interstitial changes and emphysema. There are small pleural effusions. There is no pneumothorax. The heart is normal in size. IMPRESSION: 1. Diffuse interstitial infiltrate superimposed on suspected chronic interstitial changes and emphysema. 2. Small pleural effusions. Electronically signed by: Susan Ahumada MD (03/26/2019 11:25 AM) [place] [id number]
== END | disposition home or self-care (01) ==
LOC: KCIC 10:37
PROVIDERS: ATTEND Family Medicine
DX: J90 Pleural effusion, not elsewhere classified (principal); R91.8 Other nonspecific abnormal finding of lung field
CPT/HCPCS: 71046

== ENCOUNTER 2019-10-11 22:30 | Inpatient (IN) | payer MEDICARE, BC ==
[~2019-10-11] VITALS: Ht 172.7 cm; Wt 73.0 kg
[~2019-10-11 22:30] MED LIST changes: +MULT-445 PO; -MULT1TAB52 PO
[2019-10-12] VITALS (19 sets, daily range): BP systolic 119–165; BP diastolic 43–65
--- NOTE | 2019-10-12 00:20 | PHYS DOC ---
Past Medical History Past Medical History: COPD, Hypertension Past Surgical History: Other Additional Past Surgical Histo: CAROTID ARTERY SURG Smoking Status: Current Every Day Smoker Alcohol Use: Heavy Drug Use: None General Adult EDM: Chief Complaint: MECHANICAL FALL HPI: HPI: Patient is a 74 year old male who presents with head and hand pain after fall. [place] and [place]. He is not sure what he hit his head on. He does not know if he lost consciousness. He did lay on the ground for 20 minutes because he was unable to get up. He had to call his son to come pick him up. He had a headache right after, but it is improving. Headache is achy and global. He has some dizziness. Right hand is achy, but patient states he has full motion. Review of Systems: Review of Systems: General: Denies fever, chills, sweats, fatigue Eyes: Denies drainage, blurred vision, eye redness HENT: Denies rhinorrhea, sore throat, earache Respiratory: Denies cough, shortness of breath, wheezing Cardiac: Denies edema, palpitations, chest pain GI: Denies abdominal pain, Nausea, vomiting MSK: Denies back pain, neck pain Skin: Denies rash, jaundice Neuro: Reports headache, dizziness Psychiatric: Denies SI/HI Heart Score: Risk Factors: Risk Factors: DM, Current or recent (<one month) smoker, HTN, HLP, family history of CAD, obesity. Risk Scores: Score 0 - 3: 2.5% MACE over next 6 weeks - Discharge Home Score 4 - 6: 20.3% MACE over next 6 weeks - Admit for Clinical Observation Score 7 - 10: 72.7% MACE over next 6 weeks - Early Invasive Strategies Allergies: Allergies: Allergies Coded Allergies Type Severity Reaction Last Updated Verified No Known Drug Allergies 11/30/16 No Physical Exam: PE: General: Awake, alert, NAD. Well Nourished, well hydrated. Cooperative HEENT: R upper eyelid with swelling and bruising, 2cm laceration to lateral forehead with surrounding abrasion, EOMI, PERRL, airway patent, moist oral mucosa, no nasal septal hematoma, no facial crepitus or deformity Neck: Supple, trachea midline,[no c-spine tenderness] Respiratory: CTA bilaterally, normal effort, no wheezing/crackles, no crepitus CV: RRR, no murmur, cap refill <2, 2+ bilateral radial/DP pulses GI: Soft, nondistended, nontender, no masses MSK: [No obvious deformities], pelvis stable and nontender. R hand: swelling, FROM, normal sensation Skin: Warm, dry, abrasion and swelling to R dorsal hand Neuro: A&O x3, speech NL, sensory and motor grossly intact, no focal deficits Psych: Normal affect, normal mood, not suicidal or homicidal EKG: EKG: [] Radiology/Procedures: Radiology/Procedures: [] Course & Med Decision Making: Course & Med Decision Making Pertinent Labs and Imaging studies reviewed. (See chart for details) Patient 74-year-old male who presents the emergency room after falling and hitting his head. Patient had onset of headache and dizziness after the fall with loss of consciousness. CT head and maxillofacial was ordered. X-ray of right hand was ordered. Tetanus is up-to-date. Patient does not want stitches and laceration will be closed with glue. CT shows intracranial bleed. Patient was discussed with Dr. Jackson the on-call neurosurgeon. He recommends admission to the ICU for observation and a repeat CT scan in the morning. He also has a radial fracture which was placed in a sugar tong. While in the emergency room he started developing a right sided chest and back pain with some shortness of breath. CT was ordered to evaluate for traumatic injuries of these. Patient will be admitted for further care and evaluation. Dragon Disclaimer: Dragon Disclaimer: This electronic medical record was generated, in whole or in part, using a voice recognition dictation system. Critical Care Time Critical Care: Authorized and Performed by: Juan Rojas MD Total critical care time: approximately 35 minutes Due to a high probability of clinically significant, life threatening deterioration, the patient required my highest level of preparedness to intervene emergently and I personally spent this critical care time directly and personally managing the patient. This critical care time included obtaining a history; examining the patient; pulse oximetry; ventilator management if necessary; ordering and review of studies; arranging urgent treatment with development of a management plan; evaluation of patient's response to treatment; frequent reassessment; discussion with patient/family; and, discussions with other providers. This critical care time was performed to assess and manage the high probability of imminent, life-threatening deterioration that could result in multi-organ failure. It was exclusive of separately billable procedures and treating other patients and teaching time. Please see MDM section and the rest of the note for further information on patient assessment and treatment. Departure Departure Impression: Primary Impression: Fall Additional Impressions: Closed head injury Laceration of right eyebrow Intracranial bleed Disposition: ADMITTED INPATIENT Referrals: LOI DAVIS MD (PCP) Justicifation of Admission Dx: Justifications for Admission: Justification of Admission Dx: Yes JUAN ROJAS MD Oct 12, 2019 00:20
--- NOTE | 2019-10-12 00:44 | RAD ---
CT head without contrast: Reason for examination: Fell. Axial images were obtained through the brain. No contrast was administered. Ventricular systems are symmetric and not abnormally dilated considering patient's age. No midline shift is seen. In the right temporal lobe there is a small focus of increased density which may represent a small parenchymal contusion/hemorrhage measuring 7.1 mm in size. No evidence of intracranial hemorrhage is evident. No infarcts masses or edema are seen. No abnormalities are seen at the orbits. The paranasal sinuses and mastoid air cells are clear. No acute skull abnormality is seen. IMPRESSION: Small 7.1 mm hyperdensity within the right temporal lobe consistent with a small hemorrhage/contusion. CT maxillofacial without contrast: Helical images were obtained through the maxillofacial structures with no contrast administered. Reconstruction was performed in sagittal and coronal planes. Nasal bones appear to be intact. The paranasal sinuses are clear and the snow of the sinuses are intact. Zygomatic arches are intact. Orbital snow and intraorbital structures show no abnormalities. No abnormality seen at the mandible and the temporomandibular joints appear to be maintained. IMPRESSION: No acute maxillofacial abnormality is evident. Exposure: One or more of the following individualized dose reduction techniques were utilized for this examination: 1. Automated exposure control 2. Adjustment of the mA and/or kV according to patient size 3. Use of iterative reconstruction technique. Electronically signed by: Sofia Ramos MD (10/12/2019 12:42 AM) [id number]
[2019-10-12 01:49] LABS: BASO % 1 % (0-3); EOS # 0.1 x10^3/uL (0.0-0.7); EOS % 2 % (0-3); HEMATOCRIT 41.6 % (39.0-53.0); HEMOGLOBIN 14.4 g/dL (13.0-17.5); LYMPH # 1.1 x10^3/uL (1.0-4.8); LYMPH % 17 % (24-48); MEAN CORPUSCULAR HEMOGLOBIN 36 pg (25-35); MEAN CORPUSCULAR HGB CONC 35 g/dL (31-37); MEAN CORPUSCULAR VOLUME 103 fL (79-100); MONO # 0.4 x10^3/uL (0.0-1.1); MONO % 7 % (0-9); NEUT % 75 % (31-73); PLATELET COUNT 190 x10^3/uL (140-400); RED BLOOD COUNT 4.03 x10^6/uL (4.30-5.70); RED CELL DISTRIBUTION WIDTH 13.1 % (11.5-14.5); WHITE BLOOD COUNT 6.8 x10^3/uL (4.0-11.0)
[2019-10-12 01:58] LABS: CALCIUM 8.3 mg/dL (8.5-10.1); CREATININE 0.7 mg/dL (0.7-1.3); GFR 110.9; POTASSIUM 3.8 mmol/L (3.5-5.1)
--- NOTE | 2019-10-12 01:59 | RAD ---
Right hand 3 views: Reason for examination: Fell. There appears to be a nondisplaced fracture at the distal radius with intra-articular extension. The ulna appears to be intact. No acute fractures are seen at the carpal bones, metacarpal bones or phalanges. Joint spaces are fairly well-maintained. IMPRESSION: Nondisplaced fracture at the distal radius with intra-articular extension. Electronically signed by: Sofia Ramos MD (10/12/2019 1:56 AM) [id number]
[2019-10-12 02:00] LABS: PROTHROMBIN TIME PATIENT 12.9 SEC (11.7-14.0)
[2019-10-12] MEDS ORDERED: NEOMY/BACITR/POLYMYXIN OINT PACKET. TP ONE (02:00)
--- NOTE | 2019-10-12 06:01 | RAD ---
CT chest, abdomen and pelvis without contrast: Reason for examination: Right-sided rib and back pain after fall. Helical images were obtained through the chest, abdomen and pelvis with no contrast administered. Reconstruction was performed in sagittal and coronal planes. Exposure: One or more of the following individualized dose reduction techniques were utilized for this examination: 1. Automated exposure control 2. Adjustment of the mA and/or kV according to patient size 3. Use of iterative reconstruction technique. No abnormality seen at the thyroid gland. The trachea and mainstem bronchi show no intraluminal lesions. No abnormality seen at the esophagus. The thoracic aorta shows some mild dilatation of the ascending thoracic aorta at 3.6 cm. The heart size is normal with no significant pericardial effusion. Small nonspecific lymph nodes are seen in the mediastinum. The lung bases show some atelectasis at the left lung base posteriorly. No infiltrates, pleural effusions or pneumothorax are seen. No acute bony abnormalities are seen chest. No abnormality seen at the liver, gallbladder, spleen, adrenal glands or pancreas. The kidneys show calcifications which may be vascular but are nonobstructing. There is no hydronephrosis or evidence of obstructive uropathy. The abdominal aorta shows some arteriosclerotic vascular calcification and there is some dilatation distally measuring 3.8 cm in greatest dimension below the renal arteries and not involving the iliac arteries. No abnormality seen at the inferior vena cava. The colon shows a moderate amount of fecal material with no diverticulosis, diverticulitis or colitis evident. The appendix is not identified. The small intestinal tract shows no abnormal dilatation or obstruction. The stomach is not abnormally distended. No abnormality seen in the bladder. Prostate gland contains calcifications and appears to be mildly enlarged at 4.5 cm. No gross free fluid or free air is seen in the abdomen or pelvis. There are degenerative changes in the spine. There is prosthesis at the right hip. No acute bony abnormality seen. IMPRESSION: Mildly dilated ascending aorta at 3.6 cm. Focal dilatation of the distal abdominal aorta at 3.8 cm. Mildly enlarged prostate gland with calcifications. No acute abnormality in the chest, abdomen or pelvis. Electronically signed by: Sofia Ramos MD (10/12/2019 5:58 AM) [id number]
[2019-10-12] MEDS ORDERED: 0.9 % SODIUM CHLORIDE 10 ML DISP.SYRIN. IV PRN (06:45)
[2019-10-12] MEDS ORDERED: MORPHINE SULFATE 10 MG/ML VIAL. IV ONE (07:00)
--- NOTE | 2019-10-12 07:11 | NUR ---
Pt admitted to ICU room 109 at 0535. Pt transferred to ICU bed by two ED nurses. Pt required assistance transferring due to right arm being in a cast. Pt has multiple areas of discoloration to the face and BUE. Laceration also noted to right forehead which was closed with Dermabond per ED RN. Pts VSS upon admission, pt afebrile. Pt was later placed on 3L n/c due to SPO2 dropping into the 80s when sleeping. Pt able to answer all admission questions by himself, but was unable to give exact medication doses. Pt did have c/o 8/10 pain upon admission. Call placed to Dr. Campoverde. Received orders for PRN Morphine and to consult Dr. Burt. Orders placed into system. Pt currently resting with eyes closed and call light within reach.
--- NOTE | 2019-10-12 08:06 | NUR ---
Pt admitted with fall and has ICH. Would benefit from PT/OT/SAMPLE TESTER assessment once medically stable. Please write PT/OT/SAMPLE TESTER eval and treat once medically stable
--- NOTE | 2019-10-12 08:43 | PDOC1 ---
History and Physical Date of Admission: Date of Admission DATE: 10/12/19 TIME: 08:37 Chief Complaint: Chief Complain: Fall and headache History of Present Illness: HPI: Patient is a 74-year-old male with past medical history of COPD, hypertension, carotid endarterectomy who presents to the ED with headaches and right hand pain after falling patient states that he tripped and fell but he was not sure what hit his head. Unsure if he had loss consciousness. Patient states that he did lie on the ground for about 20 minutes because he was unable to get up. His son was able to help him get up. Patient did complain of a headache at the time but it has improved. Patient describes headache as achiness and diffuse. Associated dizziness. Denies chest pains, shortness of breath, abdominal pain, diarrhea, blurry vision, epistasis Past Medical/Surgical History: PMH/PSH: Past Medical History: COPD, Hypertension Past Surgical History: Other Additional Past Surgical Histo: CAROTID ARTERY SURG Allergies: Allergies: Coded Allergies: No Known Drug Allergies (Unverified , 11/30/16) Family History: Family History: Reviewed and none reported Social History: Social History: Smoking Status: Current Every Day Smoker Alcohol Use: Heavy Drug Use: None Current Medications: Current Medications Current Medications Neomycin/ Polymyxin/ Bacitracin (Triple Antibiotic Ointment) 1 pkt 1X ONCE TP Last administered on 10/12/19at 01:35; Start 10/12/19 at 02:00; Stop 10/12/19 at 02:01; Status DC Morphine Sulfate (Morphine Sulfate) 5 mg 1X ONCE IV Last administered on 10/12/19at 07:34; Start 10/12/19 at 07:00; Stop 10/12/19 at 07:01; Status DC Sodium Chloride (Normal Saline Flush) 3 ml QSHIFT PRN IV AFTER MEDS AND BLOOD DRAWS; Start 10/12/19 at 06:45 Morphine Sulfate (Morphine Sulfate) 2 mg PRN Q2HR PRN IV SEVERE PAIN 7-10; Start 10/12/19 at 06:45 Active Scripts Active Doxycycline Hyclate 100 Mg Tablet 1 Tab PO BID 10 Days [place] 5-325 Tablet (Acetaminophen/Hydrocodone Bitart) 1 Each Tablet 1 Tab PO PRN Q6HRS PRN Reported Vitamin D (Cholecalciferol (Vitamin D3)) 1,000 Unit Capsule 5,000 Unit PO DAILY Fish Oil 1,000 Mg Capsule ([place]-3 Fatty Acids/Fish Oil) 1 Each Capsule 1 Each PO DAILY Naproxen 500 Mg Tablet 1 Tab PO BID Multivitamins (Multivitamin) 1 Each Tablet 1 Tab PO DAILY Aspir 81 (Aspirin) 81 Mg Tablet.dr 81 Mg PO Advair 100-50 Diskus (Fluticasone/Salmeterol) 1 Each Disk.w.dev 1 Puff IH BID Hydrochlorothiazide Tablet (Hydrochlorothiazide) 25 Mg Tablet 1 Tab PO DAILY Lisinopril 40 Mg Tablet 1 Tab PO DAILY Amlodipine Besylate 10 Mg Tablet 10 Mg PO DAILY ROS: Review of Systems Review of System REVIEW OF SYSTEMS: GENERAL: Denies weakness SKIN: No bruising, hair changes or rashes. EYES: No blurred, double or loss of vision. NOSE AND THROAT: No history of nosebleeds, hoarseness or sore throat. HEART: No history of palpitations, chest pain or shortness of breath on exertion. LUNGS: Denies cough, hemoptysis, wheezing or shortness of breath. GASTROINTESTINAL: Denies changes in appetite, nausea, vomiting, diarrhea or constipation. GENITOURINARY: No history of frequency, urgency, hesitancy or nocturia. NEUROLOGIC: Denies history of numbness, tingling, or tremor. PSYCHIATRIC: No history of panic, anxiety or depression. ENDOCRINE: No history of heat or cold intolerance, polyuria or polydipsia. EXTREMITIES: Denies joint pain, pain on walking or stiffness. Physical Exam: Vital Signs: Vital Signs Date Time Temp Pulse Resp B/P (MAP) Pulse Ox O2 Delivery O2 Flow Rate FiO2 10/12/19 07:34 21 98 Nasal Cannula 10/12/19 07:30 98.9 76 145/65 (91) 3.0 98.9 Physcial Exam: GEN: No apparent distress. Alert and oriented HEENT: Normal cephalic, atraumatic, external auditory canals are patent EYES: PERRLA, periorbital ecchymotic changes. MUSCULOSKELETAL: Well developed , well nourished, good range of motion NECK: Supple, no JVD, no thyromegaly was noted LUNGS: Clear to auscultation in all lung [place] without rhonchi or wheezing HEART: RRR, S!, S2 present. Peripheral pulses intact, no obvious murmurs noted ABDOMEN: Soft, nontender. Positive bowel sounds, no organomegaly, normal bowel sounds EXTREMITIES: Without clubbing, cyanosis, or edema. Pedal pulses intact. Negative Homans sign NEUROLOGIC: Normal speech and tone. A&O x 3, moves all extremities, no obvious focal deficits SKIN: No ulcerations or rashes, good skin turgor, no jaundice VASCULAR: Good capillary refill, neurovascular bundle appears to be intact Labs: Labs: Laboratory Tests Test 10/12/19 00:11 White Blood Count 6.8 x10^3/uL (4.0-11.0) Red Blood Count 4.03 x10^6/uL (4.30-5.70) Hemoglobin 14.4 g/dL (13.0-17.5) Hematocrit 41.6 % (39.0-53.0) Mean Corpuscular Volume 103 fL (79-100) Mean Corpuscular Hemoglobin 36 pg (25-35) Mean Corpuscular Hemoglobin Concent 35 g/dL (31-37) Red Cell Distribution Width 13.1 % (11.5-14.5) Platelet Count 190 x10^3/uL (140-400) Neutrophils (%) (Auto) 75 % (31-73) Lymphocytes (%) (Auto) 17 % (24-48) Monocytes (%) (Auto) 7 % (0-9) Eosinophils (%) (Auto) 2 % (0-3) Basophils (%) (Auto) 1 % (0-3) Neutrophils # (Auto) 5.0 x10^3/uL (1.8-7.7) Lymphocytes # (Auto) 1.1 x10^3/uL (1.0-4.8) Monocytes # (Auto) 0.4 x10^3/uL (0.0-1.1) Eosinophils # (Auto) 0.1 x10^3/uL (0.0-0.7) Basophils # (Auto) 0.0 x10^3/uL (0.0-0.2) Prothrombin Time 12.9 SEC (11.7-14.0) Prothromb Time International Ratio 1.0 (0.8-1.1) Activated Partial Thromboplast Time 26 SEC (24-38) Sodium Level 131 mmol/L (136-145) Potassium Level 3.8 mmol/L (3.5-5.1) Chloride Level 97 mmol/L (98-107) Carbon Dioxide Level 28 mmol/L (21-32) Anion Gap 6 (6-14) Blood Urea Nitrogen 9 mg/dL (8-26) Creatinine 0.7 mg/dL (0.7-1.3) Estimated GFR (Cockcroft-Gault) 110.9 Glucose Level 77 mg/dL (70-99) Calcium Level 8.3 mg/dL (8.5-10.1) Laboratory Tests Test 10/12/19 00:11 White Blood Count 6.8 x10^3/uL (4.0-11.0) Red Blood Count 4.03 x10^6/uL (4.30-5.70) Hemoglobin 14.4 g/dL (13.0-17.5) Hematocrit 41.6 % (39.0-53.0) Mean Corpuscular Volume 103 fL (79-100) Mean Corpuscular Hemoglobin 36 pg (25-35) Mean Corpuscular Hemoglobin Concent 35 g/dL (31-37) Red Cell Distribution Width 13.1 % (11.5-14.5) Platelet Count 190 x10^3/uL (140-400) Neutrophils (%) (Auto) 75 % (31-73) Lymphocytes (%) (Auto) 17 % (24-48) Monocytes (%) (Auto) 7 % (0-9) Eosinophils (%) (Auto) 2 % (0-3) Basophils (%) (Auto) 1 % (0-3) Neutrophils # (Auto) 5.0 x10^3/uL (1.8-7.7) Lymphocytes # (Auto) 1.1 x10^3/uL (1.0-4.8) Monocytes # (Auto) 0.4 x10^3/uL (0.0-1.1) Eosinophils # (Auto) 0.1 x10^3/uL (0.0-0.7) Basophils # (Auto) 0.0 x10^3/uL (0.0-0.2) Prothrombin Time 12.9 SEC (11.7-14.0) Prothromb Time International Ratio 1.0 (0.8-1.1) Activated Partial Thromboplast Time 26 SEC (24-38) Sodium Level 131 mmol/L (136-145) Potassium Level 3.8 mmol/L (3.5-5.1) Chloride Level 97 mmol/L (98-107) Carbon Dioxide Level 28 mmol/L (21-32) Anion Gap 6 (6-14) Blood Urea Nitrogen 9 mg/dL (8-26) Creatinine 0.7 mg/dL (0.7-1.3) Estimated GFR (Cockcroft-Gault) 110.9 Glucose Level 77 mg/dL (70-99) Calcium Level 8.3 mg/dL (8.5-10.1) Images: Images All labs, images, and reports were reviewed by me personally CT head without contrast: Reason for examination: Fell. Axial images were obtained through the brain. No contrast was administered. Ventricular systems are symmetric and not abnormally dilated considering patient's age. No midline shift is seen. In the right temporal lobe there is a small focus of increased density which may represent a small parenchymal contusion/hemorrhage measuring 7.1 mm in size. No evidence of intracranial hemorrhage is evident. No infarcts masses or edema are seen. No abnormalities are seen at the orbits. The paranasal sinuses and mastoid air cells are clear. No acute skull abnormality is seen. IMPRESSION: Small 7.1 mm hyperdensity within the right temporal lobe consistent with a small hemorrhage/contusion. CT maxillofacial without contrast: Helical images were obtained through the maxillofacial structures with no contrast administered. Reconstruction was performed in sagittal and coronal planes. Nasal bones appear to be intact. The paranasal sinuses are clear and the snow of the sinuses are intact. Zygomatic arches are intact. Orbital snow and intraorbital structures show no abnormalities. No abnormality seen at the mandible and the temporomandibular joints appear to be maintained. IMPRESSION: No acute maxillofacial abnormality is evident. Exposure: One or more of the following individualized dose reduction techniques were utilized for this examination: 1. Automated exposure control 2. Adjustment of the mA and/or kV according to patient size 3. Use of iterative reconstruction technique. CT ABD/Pelvis IMPRESSION: Mildly dilated ascending aorta at 3.6 cm. Focal dilatation of the distal abdominal aorta at 3.8 cm. Mildly enlarged prostate gland with calcifications. No acute abnormality in the chest, abdomen or pelvis. Assessment/Plan Assessment/Plan Right 7 mm intra-cerebral hemorrhage in the temporal lobe Right distal radial fracture, nondisplaced Hypertension COPD Admit to ICU for neuro management Neurosurgery consulted Every 2 neurochecks Pending MRI in the morning Maintain blood pressure goals less than 180 Ortho consult for radial fracture Contraindicated for DVT prophylaxis ADA diet Full code Discussed with RN and SW Dispo pending MRI Surrogate decision maker is self Total critical time spent is 40 minutes Justicifation of Admission Dx: Justifications for Admission: Justification of Admission Dx: Yes BRINDA NERI MD Oct 12, 2019 08:43
[2019-10-12] MEDS ORDERED: ALBU2.5V14 NEB (09:37)
[2019-10-12] MEDS ORDERED: LISI1TAB23 PO (09:37)
[2019-10-12] MEDS ORDERED: AMLO5TAB10 PO (09:37)
[2019-10-12] MEDS: MORPHINE SULFATE 2 MG/ML VIAL. IV PRN ×3 (10:44→17:53)
--- NOTE | 2019-10-12 12:19 | NUR ---
SS following for discharge planning. SS reviewed pt chart and discussed with pt RN. Pt is from home and is currently requiring oxygen. Dr. Burt consulted. Pt to have CT scan in the morning. SS will continue to follow for discharge planning.
[2019-10-12] MEDS ORDERED: NON FORMULARY ITEM (Albuterol Sulfate (Albuterol Sulfate Conc Neb Soln) 2.5 MG) NEB PRN (13:45)
--- NOTE | 2019-10-12 15:13 | PDOC ---
Provider Note Provider Note Patient seen and examined at 0920 consulted for right temporal hemorrhage fell last night with no LOC Neuro intact right postorbital bruising CT with small right temporal hemorrhage keep in ICU today rescan in AM will follow D/W RN Justicifation of Admission Dx: Justifications for Admission: Justification of Admission Dx: Yes QUINN RUIZ MD Oct 12, 2019 15:13
[2019-10-12] MEDS: HYDROcodone/APAP 5/325MG 1 TAB TABLET PO PRN ×2 (15:31→19:39)
[2019-10-12] MEDS: ALBUTEROL SULFATE 2.5 MG/3 ML NEBU. NEB SCH ×2 (15:40→20:00)
[2019-10-12] MEDS: BUDESONIDE 0.5 MG/2 ML NEBU. NEB SCH (20:00)
[2019-10-12] MEDS ORDERED: ONDANSETRON PF 4 MG/2 ML VIAL. IVP PRN (20:45)
[2019-10-12] MEDS ORDERED: NON FORMULARY ITEM (Fluticasone/Salmeterol (Advair 100-50 Diskus) 1 PUFF) IH SCH (21:00)
[2019-10-13] VITALS (18 sets, daily range): BP systolic 108–187; BP diastolic 47–66
--- NOTE | 2019-10-13 01:43 | NUR ---
Patient has been having intermittent coughing, not enough to clear bronchus, has been encouraged to use IS, pt reports he would when he was ready, reports to always have a cough, but now is hard to cough up due to the discomfort of right-sided rib pain. patient's oxygen desats as was wearing his cpap from home, RT looks at type of cpap, unable to attach the oxygen tubing to the machine, so patient had been given his nasal cannula, 93%, Patient awakens to retrieve his cpap, he wants nasal cannula with cpap mask over face. done as patient requests, sats 93%, monitoring.
[2019-10-13] MEDS: BUDESONIDE 0.5 MG/2 ML NEBU. NEB SCH ×2 (08:01→20:56)
[2019-10-13] MEDS: ALBUTEROL SULFATE 2.5 MG/3 ML NEBU. NEB SCH ×3 (08:01→15:08)
[2019-10-13] MEDS: HYDROcodone/APAP 5/325MG 1 TAB TABLET PO PRN ×3 (08:19→20:42)
[2019-10-13] MEDS: amLODIPine BESYLATE 5 MG TABLET PO SCH (08:55)
--- NOTE | 2019-10-13 09:09 | PDOC2 ---
CONSULT Date of Consult Date of Consult DATE: 10/13/19 TIME: 09:04 Reason for Consult Reason for Consult: Right distal radius fracture Referring Physician Referring Physician: Robert Identification/Chief Complaint Chief Complaint Right wrist ache History of Present Illness Reason for Visit: Patient is a very pleasant 74-year-old gentleman who fell trying to get into his car landing onto an outstretched right upper extremity and striking his head on night. He was admitted for follow-up regarding a small intracranial hemorrhage. Regarding his wrist, he tells me that it aches, the pain is tolerable. He feels some tingling in his thumb. He denies any other complaints or concerns at this time. Past Medical History Cardiovascular: CAD Pulmonary: COPD GI: No pertinent hx Musculoskeletal: Osteoarthritis Past Surgical History Past Surgical History: Other (Left distal biceps repair, right hip replacement, carotid endarterectomy) Family History Family History: Heart Disease Social History 1 pack per day ALCOHOL: heavy Drugs: None Current Problem List Problem List Problems Medical Problems: (1) Closed head injury Status: Acute (2) Fall Status: Acute (3) Intracranial bleed Status: Acute (4) Laceration of right eyebrow Status: Acute Current Medications Current Medications Current Medications Neomycin/ Polymyxin/ Bacitracin (Triple Antibiotic Ointment) 1 pkt 1X ONCE TP Last administered on 10/12/19at 01:35; Start 10/12/19 at 02:00; Stop 10/12/19 at 02:01; Status DC Morphine Sulfate (Morphine Sulfate) 5 mg 1X ONCE IV Last administered on 10/12/19at 07:34; Start 10/12/19 at 07:00; Stop 10/12/19 at 07:01; Status DC Sodium Chloride (Normal Saline Flush) 3 ml QSHIFT PRN IV AFTER MEDS AND BLOOD DRAWS; Start 10/12/19 at 06:45 Morphine Sulfate (Morphine Sulfate) 2 mg PRN Q2HR PRN IV SEVERE PAIN 7-10 Last administered on 10/12/19at 17:53; Start 10/12/19 at 06:45 Amlodipine Besylate (Norvasc) 5 mg DAILY PO Last administered on 10/13/19at 08:55; Start 10/13/19 at 09:00 Non-Formulary Medication (Albuterol Sulfate (Albuterol Sulfate Conc Neb Soln)) 2.5 mg PRN Q6HRS PRN NEB ; Start 10/12/19 at 13:45; Status UNV Non-Formulary Medication (Fluticasone/ Salmeterol (Advair 100-50 Diskus)) 1 puff BID IH ; Start 10/12/19 at 21:00; Status UNV Acetaminophen/ Hydrocodone Bitart (Lortab 5/325) 1 tab PRN Q4HRS PRN PO PAIN Last administered on 10/13/19at 08:19; Start 10/12/19 at 13:45 Albuterol Sulfate (Ventolin Neb Soln) 2.5 mg RTQID NEB Last administered on 10/13/19at 08:01; Start 10/12/19 at 16:00 Budesonide (Pulmicort) 0.5 mg RTBID NEB Last administered on 10/13/19at 08:01; Start 10/12/19 at 20:00 Ondansetron HCl (Zofran) 4 mg PRN Q4HRS PRN IVP NAUSEA/VOMITING Last administered on 10/12/19at 21:13; Start 10/12/19 at 20:45 Active Scripts Active Reported Albuterol Sulfate Conc Neb Soln (Albuterol Sulfate) 2.5 Mg/0.5 Ml Vial.neb 2.5 Mg NEB PRN Q6HRS PRN Lisinopril-Hctz 10-12.5 Mg Tab (Lisinopril/Hydrochlorothiazide) 1 Each Tablet 1 Tab PO DAILY Amlodipine Besylate 5 Mg Tablet 5 Mg PO DAILY Vitamin D (Cholecalciferol (Vitamin D3)) 1,000 Unit Capsule 5,000 Unit PO DAILY Fish Oil 1,000 Mg Capsule ([place]-3 Fatty Acids/Fish Oil) 1 Each Capsule 1 Each PO DAILY Naproxen 500 Mg Tablet 1 Tab PO BID Multivitamins (Multivitamin) 1 Each Tablet 1 Tab PO DAILY Aspir 81 (Aspirin) 81 Mg Tablet.dr 81 Mg PO Advair 100-50 Diskus (Fluticasone/Salmeterol) 1 Each Disk.w.dev 1 Puff IH BID Allergies Allergies: Coded Allergies: No Known Drug Allergies (Unverified , 11/30/16) ROS General: No: Chills, Night Sweats, Fatigue, Malaise, Appetite, Other PSYCHOLOGICAL ROS: No: Anxiety, Behavioral Disorder, Concentration difficultie, Decreased libido, Depression, Disorientation, Hallucinations, Hostility, Irritablity, Memory difficulties, Mood Swings, Obsessive thoughts, Physical abuse, Sexual abuse, Sleep disturbances, Suicidal ideation, Other Eyes: No Blurry vision, No Decreased vision, No Double vision, No Dry eyes, No Excessive tearing, No Eye Pain, No Itchy Eyes, No Loss of vision, No Phot ophobia, No Scotomata, No Uses contacts, No Uses glasses, No Other HEENT: No: Heacaches, Visual Changes, Hearing change, Nasal congestion, Nasal discharge, Oral lesions, Sinus pain, Sore Throat, Epistaxis, Sneezing, Snoring, Tinnitus, Vertigo, Vocal changes, Other ALLERGY AND IMMUNOLOGY: No: Hives, Insect Bite Sensitivity, Itchy/Watery Eyes, Nasal Congestion, Post Nasal Drip, Seasonal Allergies, Other Hematological and Lymphatic: No: Bleeding Problems, Blood Clots, Blood Transfusions, Brusing, Night Sweats, Pallor, Swollen Lymph Nodes, Other ENDOCRINE: No: Breast Changes, Galactorrhea, Hair Pattern Changes, Hot Flashes, Malaise/lethargy, Mood Swings, Palpitations, Polydipsia/polyuria, Skin Changes, Temperature Intolerance, Unexpected Weight Changes, Other Respiratory: No: Cough, Hemoptysis, Orthopnea, Pleuritic Pain, Shortness of breath, SOB with excertion, Sputum Changes, Stridor, Tachypnea, Wheezing, Other Cardiovascular: No Chest Pain, No Palpitations, No Orthopnea, No Paroxysmal Noc. Dyspnea, No Edema, No Lt Headedness, No Other Gastrointestinal: No Nausea, No Vomiting, No Abdominal Pain, No Diarrhea, No Constipation, No Melena, No Hematochezia, No Other Musculoskeletal: Yes Joint Pain Neurological: No Behavorial Changes, No Bowel/Bladder ControlChng, No Confusion, No Dizziness, No Gait Disturbance, No Headaches, No Impaired Coord/balance, No Memory Loss, No Numbness/Tingling, No Seizures, No Speech Problems, No Tremors, No Visual Changes, No Weakness, No Other Skin: No Dry Skin, No Eczema, No Hair Changes, No Lumps, No Mole Changes, No Mottling, No Nail Changes, No Pruritus, No Rash, No Skin Lesion Changes, No Other, No Acne Physical Exam General: Alert, Oriented X3, No acute distress HEENT: PERRLA, EOMI Lungs: Other (Respirations unlabored with symmetric chest rise) Heart: Regular rate Abdomen: Soft, No tenderness Extremities: Other (Edema at right finger) Neuro: Normal speech, Strength at 5/5 X4 ext, Other (He reports decreased sensation in his thumb on the volar aspect. Motor is intact median, radial, ulnar nerves.) Psych/Mental Status: Mental status NL, Mood NL MUSCULOSKELETAL: Other (Right upper extremity is in a sugar tong splint.) Vitals VITALS Vital Signs Date Time Temp Pulse Resp B/P (MAP) Pulse Ox O2 Delivery O2 Flow Rate FiO2 10/13/19 08:55 78 119/47 10/13/19 08:19 20 97 Nasal Cannula 2.0 10/13/19 08:00 98.8 98.8 Labs Labs Laboratory Tests Test 10/12/19 00:11 White Blood Count 6.8 x10^3/uL (4.0-11.0) Red Blood Count 4.03 x10^6/uL (4.30-5.70) Hemoglobin 14.4 g/dL (13.0-17.5) Hematocrit 41.6 % (39.0-53.0) Mean Corpuscular Volume 103 fL (79-100) Mean Corpuscular Hemoglobin 36 pg (25-35) Mean Corpuscular Hemoglobin Concent 35 g/dL (31-37) Red Cell Distribution Width 13.1 % (11.5-14.5) Platelet Count 190 x10^3/uL (140-400) Neutrophils (%) (Auto) 75 % (31-73) Lymphocytes (%) (Auto) 17 % (24-48) Monocytes (%) (Auto) 7 % (0-9) Eosinophils (%) (Auto) 2 % (0-3) Basophils (%) (Auto) 1 % (0-3) Neutrophils # (Auto) 5.0 x10^3/uL (1.8-7.7) Lymphocytes # (Auto) 1.1 x10^3/uL (1.0-4.8) Monocytes # (Auto) 0.4 x10^3/uL (0.0-1.1) Eosinophils # (Auto) 0.1 x10^3/uL (0.0-0.7) Basophils # (Auto) 0.0 x10^3/uL (0.0-0.2) Prothrombin Time 12.9 SEC (11.7-14.0) Prothromb Time International Ratio 1.0 (0.8-1.1) Activated Partial Thromboplast Time 26 SEC (24-38) Sodium Level 131 mmol/L (136-145) Potassium Level 3.8 mmol/L (3.5-5.1) Chloride Level 97 mmol/L (98-107) Carbon Dioxide Level 28 mmol/L (21-32) Anion Gap 6 (6-14) Blood Urea Nitrogen 9 mg/dL (8-26) Creatinine 0.7 mg/dL (0.7-1.3) Estimated GFR (Cockcroft-Gault) 110.9 Glucose Level 77 mg/dL (70-99) Calcium Level 8.3 mg/dL (8.5-10.1) Images Images X-rays were reviewed Assessment/Plan Assessment/Plan His x-rays show an intra-articular distal radius fracture. Good overall alignment. He should remain in the sugar tong splint and follow-up in 2 weeks. Nonweightbearing right upper extremity. Disposition per primary. KATHIA AMOR II, MD Oct 13, 2019 09:08
--- NOTE | 2019-10-13 09:36 | RAD ---
CT brain without contrast. HISTORY: Right temporal hemorrhage, follow-up CT scan of brain was done without contrast. Sinuses are clear. A skull fracture is not identified. There is extracranial soft tissue swelling with soft tissue gas in the lateral right forehead just cephalad to the right orbit. Minimal hemorrhage in the right temporal lobe is again identified. There is a tiny right subdural hematoma or possibly subarachnoid hemorrhage in this same region along the temporal lobe on the right. There is no shift of the midline. Ventricles are normal in size. IMPRESSION: 1. Small parenchymal hemorrhage right temporal lobe without change. 2. Small amount of subarachnoid hemorrhage or tiny subdural hemorrhage along the right temporal lobe lateral to the parenchymal hemorrhage on the right. 3. No other new hemorrhage or change. PQRS Compliance Statement: One or more of the following individualized dose reduction techniques were utilized for this examination: 1. Automated exposure control 2. Adjustment of the mA and/or kV according to patient size 3. Use of iterative reconstruction technique Electronically signed by: Colt Walsh MD (10/13/2019 9:33 AM) [facility]
--- NOTE | 2019-10-13 10:53 | PDOC ---
[employer] PROGRESS NOTE Chief Complaint Chief Complaint Right 7 mm intra-cerebral hemorrhage in the temporal lobe, repeat CT head is stable Right distal radial fracture, nondisplaced Hypertension COPD Admit to ICU for neuro management Pending neurosurgery evaluation Every 2 neurochecks Maintain blood pressure goals less than 180 Ortho recommendations, nonsurgical management. He should remain in the sugar tong splint and follow-up in 2 weeks. Nonweightbearing right upper extremity. Contraindicated for DVT prophylaxis ADA diet Full code Discussed with RN and SW Dispo pending transfer to [facility] after seen by Dr. Burt Surrogate decision maker is self Total critical time spent is 35 minutes History of Present Illness History of Present Illness 74-year-old male with past medical history of COPD, hypertension, carotid endarterectomy who presents to the ED with headaches and right hand pain after falling patient states that he tripped and fell but he was not sure what hit his head. Unsure if he had loss consciousness. Patient states that he did lie on the ground for about 20 minutes because he was unable to get up. His son was able to help him get up. Patient did complain of a headache at the time but it has improved. Patient describes headache as achiness and diffuse. Associated dizziness. Denies chest pains, shortness of breath, abdominal pain, diarrhea, blurry vision, epistasis 10/13/2019 No acute events overnight. No focal neurological changes. Patient seen returning in a wheelchair from CT head. Pain is well controlled. Patient's chart, labs, images were reviewed and discussed with RN Vitals/I&O Vitals/I&O: Vital Signs Date Time Temp Pulse Resp B/P (MAP) Pulse Ox O2 Delivery O2 Flow Rate FiO2 10/13/19 10:00 65 20 111/49 (69) 90 Nasal Cannula 2.0 10/13/19 08:00 98.8 98.8 I & O 10/12/19 10/12/19 10/13/19 15:00 23:00 07:00 Intake Total 300 ml 350 ml 0 ml Output Total 700 ml 250 ml 600 ml Balance -400 ml 100 ml -600 ml Physical Exam General: Alert, Oriented X3, No acute distress Heart: Regular rate Abdomen: Soft, No tenderness Extremities: Other (Edema at right finger) Assessment and Plan Assessmemt and Plan Problems Medical Problems: (1) Closed head injury Status: Acute (2) Fall Status: Acute (3) Intracranial bleed Status: Acute (4) Laceration of right eyebrow Status: Acute Comment Review of Relevant I have reviewed the following items david (where applicable) has been applied. Medications: Current Medications Medications (Trade) Dose Ordered Sig/Lyndsey Route PRN Reason Start Time Stop Time Status Last Admin Dose Admin Amlodipine Besylate (Norvasc) 5 mg DAILY PO 10/13/19 09:00 10/13/19 08:55 Acetaminophen/ Hydrocodone Bitart (Lortab 5/325) 1 tab PRN Q4HRS PRN PO PAIN 10/12/19 13:45 10/13/19 08:19 Albuterol Sulfate (Ventolin Neb Soln) 2.5 mg RTQID NEB 10/12/19 16:00 10/13/19 08:01 Budesonide (Pulmicort) 0.5 mg RTBID NEB 10/12/19 20:00 10/13/19 08:01 Ondansetron HCl (Zofran) 4 mg PRN Q4HRS PRN IVP NAUSEA/VOMITING 10/12/19 20:45 10/12/19 21:13 Justicifation of Admission Dx: Justifications for Admission: Justification of Admission Dx: Yes BRINDA NERI MD Oct 13, 2019 10:53
--- NOTE | 2019-10-13 11:24 | NUR ---
Per Dr. Gambino patient is cleared from their service with follow-up in office in two weeks. Per Dr. Jackson, patient is cleared to go home with follow-up in office in two weeks, patient is not to drive until after appointment with Dr. Jackson. Spoke with son, Ricardo, explained the plan to send patient home, and restrictions at home. Dr. Jones notified of discharge approval by above Doctors and will put in discharge instructions with prescription for pain medication to take at home.
--- NOTE | 2019-10-13 11:33 | DISCH ---
DISCHARGE INSTRUCTIONS Condition on Discharge Condition on Discharge: Stable Activity After Discharge Activity Instructions for Disc: Activity as tolerated Lifting Instructions after Dis: No heavy lifting Exercise Instruction after Dis: Walk 30 min, 3 x per week Driving Instructions after Dis: Do not drive, No driving for 2 weeks Diet after Discharge Diet after Discharge: Regular Follow-Up Follow up with: Neurosurgery in 2 weeks Follow Up With: Orthopedics in 2 weeks Treatment/Equipment after DC Adaptive Equipment Issued: BRINDA Gamble MD Oct 13, 2019 11:33
[2019-10-13] MEDS ORDERED: HYDR-2759 PO (12:19)
[2019-10-13] MEDS ORDERED: HYDR-2761 PO (12:23)
--- NOTE | 2019-10-13 13:15 | NUR ---
Patient is unable to maintain O2 above 88-90% on room air. Patient wants to discharge however, saturation levels have been between 74-84% on room air. Patient placed back on O2 1L NC, Dr. Jones paged and orders received. Consulting Pulmonary for orders. Per Dr. Robert forde to transfer to Med-Surg.
--- NOTE | 2019-10-13 13:21 | PDOC ---
PROGRESS NOTES Subjective Subjective Patient seen and examined at 1100 no complaints up in chair normal neuro exam Reviewed follow up CT head- no change, small right temporal hemorrhage we will make arrangements for CT head in 2 weeks Objective Objective Vital Signs Date Time Temp Pulse Resp B/P (MAP) Pulse Ox O2 Delivery O2 Flow Rate FiO2 10/13/19 12:51 20 89 Room Air 10/13/19 12:00 98.7 86 117/53 (74) 98.7 10/13/19 10:00 2.0 Intake and Output 10/13/19 06:59 Intake Total 650 ml Output Total 950 ml Balance -300 ml Intake Oral 650 ml Output Urine Total 900 ml Emesis 50 ml Assessment Assessment Problems Medical Problems: (1) Closed head injury Status: Acute (2) Fall Status: Acute (3) Intracranial bleed Status: Acute (4) Laceration of right eyebrow Status: Acute Comment Review of Relevant I have reviewed the following items david (where applicable) has been applied. Labs Laboratory Tests Test 10/12/19 00:11 White Blood Count 6.8 x10^3/uL (4.0-11.0) Red Blood Count 4.03 x10^6/uL (4.30-5.70) Hemoglobin 14.4 g/dL (13.0-17.5) Hematocrit 41.6 % (39.0-53.0) Mean Corpuscular Volume 103 fL (79-100) Mean Corpuscular Hemoglobin 36 pg (25-35) Mean Corpuscular Hemoglobin Concent 35 g/dL (31-37) Red Cell Distribution Width 13.1 % (11.5-14.5) Platelet Count 190 x10^3/uL (140-400) Neutrophils (%) (Auto) 75 % (31-73) Lymphocytes (%) (Auto) 17 % (24-48) Monocytes (%) (Auto) 7 % (0-9) Eosinophils (%) (Auto) 2 % (0-3) Basophils (%) (Auto) 1 % (0-3) Neutrophils # (Auto) 5.0 x10^3/uL (1.8-7.7) Lymphocytes # (Auto) 1.1 x10^3/uL (1.0-4.8) Monocytes # (Auto) 0.4 x10^3/uL (0.0-1.1) Eosinophils # (Auto) 0.1 x10^3/uL (0.0-0.7) Basophils # (Auto) 0.0 x10^3/uL (0.0-0.2) Prothrombin Time 12.9 SEC (11.7-14.0) Prothromb Time International Ratio 1.0 (0.8-1.1) Activated Partial Thromboplast Time 26 SEC (24-38) Sodium Level 131 mmol/L (136-145) Potassium Level 3.8 mmol/L (3.5-5.1) Chloride Level 97 mmol/L (98-107) Carbon Dioxide Level 28 mmol/L (21-32) Anion Gap 6 (6-14) Blood Urea Nitrogen 9 mg/dL (8-26) Creatinine 0.7 mg/dL (0.7-1.3) Estimated GFR (Cockcroft-Gault) 110.9 Glucose Level 77 mg/dL (70-99) Calcium Level 8.3 mg/dL (8.5-10.1) Medications Current Medications Neomycin/ Polymyxin/ Bacitracin (Triple Antibiotic Ointment) 1 pkt 1X ONCE TP Last administered on 10/12/19at 01:35; Start 10/12/19 at 02:00; Stop 10/12/19 at 02:01; Status DC Morphine Sulfate (Morphine Sulfate) 5 mg 1X ONCE IV Last administered on 10/12/19at 07:34; Start 10/12/19 at 07:00; Stop 10/12/19 at 07:01; Status DC Sodium Chloride (Normal Saline Flush) 3 ml QSHIFT PRN IV AFTER MEDS AND BLOOD DRAWS; Start 10/12/19 at 06:45 Morphine Sulfate (Morphine Sulfate) 2 mg PRN Q2HR PRN IV SEVERE PAIN 7-10 Last administered on 10/12/19at 17:53; Start 10/12/19 at 06:45 Amlodipine Besylate (Norvasc) 5 mg DAILY PO Last administered on 10/13/19at 08:55; Start 10/13/19 at 09:00 Non-Formulary Medication (Albuterol Sulfate (Albuterol Sulfate Conc Neb Soln)) 2.5 mg PRN Q6HRS PRN NEB ; Start 10/12/19 at 13:45; Status UNV Non-Formulary Medication (Fluticasone/ Salmeterol (Advair 100-50 Diskus)) 1 puff BID IH ; Start 10/12/19 at 21:00; Status UNV Acetaminophen/ Hydrocodone Bitart (Lortab 5/325) 1 tab PRN Q4HRS PRN PO PAIN Last administered on 10/13/19at 08:19; Start 10/12/19 at 13:45 Albuterol Sulfate (Ventolin Neb Soln) 2.5 mg RTQID NEB Last administered on 10/13/19at 11:59; Start 10/12/19 at 16:00 Budesonide (Pulmicort) 0.5 mg RTBID NEB Last administered on 10/13/19at 08:01; Start 10/12/19 at 20:00 Ondansetron HCl (Zofran) 4 mg PRN Q4HRS PRN IVP NAUSEA/VOMITING Last administered on 10/12/19at 21:13; Start 10/12/19 at 20:45 Active Scripts Active Reported Hydrocodone-Apap 5-325 (Hydrocodone Bit/Acetaminophen) 1 Tab Tablet 1 Tab PO PRN Q4-6HRS PRN Albuterol Sulfate Conc Neb Soln (Albuterol Sulfate) 2.5 Mg/0.5 Ml Vial.neb 2.5 Mg NEB PRN Q6HRS PRN Lisinopril-Hctz 10-12.5 Mg Tab (Lisinopril/Hydrochlorothiazide) 1 Each Tablet 1 Tab PO DAILY Amlodipine Besylate 5 Mg Tablet 5 Mg PO DAILY Vitamin D (Cholecalciferol (Vitamin D3)) 1,000 Unit Capsule 5,000 Unit PO DAILY Multivitamins (Multivitamin) 1 Each Tablet 1 Tab PO DAILY Advair 100-50 Diskus (Fluticasone/Salmeterol) 1 Each Disk.w.dev 1 Puff IH BID Vitals/I & O Vital Sign - Last 24 Hours 10/12/19 10/12/19 10/12/19 10/12/19 13:17 13:20 13:47 14:00 Pulse 61 57 Resp 18 20 18 18 B/P (MAP) 145/58 (87) 131/56 (81) Pulse Ox 99 99 99 O2 Delivery Nasal Cannula Nasal Cannula Nasal Cannula Nasal Cannula O2 Flow Rate 3.0 3.0 3.0 3.0 10/12/19 10/12/19 10/12/19 10/12/19 15:00 15:31 15:42 16:20 Temp 98.7 98.7 Pulse 68 61 Resp 18 18 20 B/P (MAP) 129/56 (80) 155/55 (88) Pulse Ox 97 95 95 O2 Delivery Nasal Cannula Nasal Cannula Nasal Cannula Nasal Cannula O2 Flow Rate 2.5 2.0 2.0 2.5 10/12/19 10/12/19 10/12/19 10/12/19 16:20 16:31 17:10 17:53 Pulse 61 Resp 18 20 20 B/P (MAP) 129/61 (83) Pulse Ox 96 96 92 O2 Delivery Nasal Cannula Nasal Cannula Nasal Cannula Nasal Cannula O2 Flow Rate 3.0 2.5 2.5 2.0 10/12/19 10/12/19 10/12/19 10/12/19 18:00 18:23 19:35 19:39 Temp 99.2 99.2 Pulse 71 69 Resp 20 16 20 20 B/P (MAP) 119/43 (68) 150/60 (90) Pulse Ox 95 95 94 95 O2 Delivery Nasal Cannula Nasal Cannula Nasal Cannula Nasal Cannula O2 Flow Rate 2.0 2.0 10/12/19 10/12/19 10/12/19 10/12/19 20:00 20:20 20:39 21:00 Pulse 65 66 Resp 22 20 23 B/P (MAP) 150/53 (85) 165/62 (96) Pulse Ox 97 94 O2 Delivery Nasal Cannula Nasal Cannula Nasal Cannula O2 Flow Rate 2.0 2.0 2.0 10/12/19 10/12/19 10/13/19 10/13/19 22:00 22:56 00:00 00:00 Temp 97.6 97.6 97.6 97.6 Pulse 62 62 63 Resp 20 22 B/P (MAP) 145/58 (87) 145/58 (87) 141/53 (82) Pulse Ox 90 90 93 O2 Delivery BiPAP/CPAP Nasal Cannula Nasal Cannula Nasal Cannula O2 Flow Rate 2.0 2.0 2.0 10/13/19 10/13/19 10/13/19 10/13/19 01:00 02:00 03:20 04:16 Temp 97.9 97.9 Pulse 73 60 57 57 Resp 22 22 18 18 B/P (MAP) 141/66 (91) 146/60 (88) 125/60 (81) 121/55 (77) Pulse Ox 94 91 92 96 O2 Delivery Nasal Cannula BiPAP/CPAP BiPAP/CPAP BiPAP/CPAP 10/13/19 10/13/19 10/13/19 10/13/19 04:17 05:00 06:00 07:00 Pulse 58 59 68 Resp 18 20 20 B/P (MAP) 132/64 (86) 144/57 (86) 179/64 (102) Pulse Ox 90 92 95 O2 Delivery Nasal Cannula BiPAP/CPAP BiPAP/CPAP Nasal Cannula O2 Flow Rate 2.0 2.0 10/13/19 10/13/19 10/13/19 10/13/19 08:00 08:00 08:02 08:19 Temp 98.8 98.8 Pulse 78 Resp 20 20 B/P (MAP) 119/47 (71) Pulse Ox 90 96 97 O2 Delivery Nasal Cannula Nasal Cannula Nasal Cannula Nasal Cannula O2 Flow Rate 2.0 2.0 2.0 2.0 10/13/19 10/13/19 10/13/19 10/13/19 08:55 09:00 09:40 10:00 Pulse 78 83 65 Resp 18 20 B/P (MAP) 119/47 139/51 (80) 111/49 (69) Pulse Ox 89 89 90 O2 Delivery Nasal Cannula Nasal Cannula Nasal Cannula O2 Flow Rate 2.0 2.0 2.0 10/13/19 10/13/19 10/13/19 10/13/19 11:00 11:59 12:00 12:00 Temp 98.7 98.7 Pulse 64 86 Resp 20 B/P (MAP) 108/50 (69) 117/53 (74) Pulse Ox 93 85 O2 Delivery Room Air Room Air Room Air Room Air 10/13/19 12:51 Resp 20 Pulse Ox 89 O2 Delivery Room Air Intake and Output 10/12/19 10/12/19 10/13/19 14:59 22:59 06:59 Intake Total 300 ml 350 ml 0 ml Output Total 400 ml 550 ml 0 ml Balance -100 ml -200 ml 0 ml Justicifation of Admission Dx: Justifications for Admission: Justification of Admission Dx: Yes QUINN RUIZ MD Oct 13, 2019 13:21
[2019-10-13 14:07] LABS: BASE EXCESS ABG -1 mmol/L (-3-3); HCO3 ABG 24 mmol/L (21-28); PCO2 ABG 40 mmHg (35-46); PO2 ABG 63 mmHg (65-108); SAT O2 ABG 91 % (92-99)
[2019-10-13 14:11] LABS: FIO2 ABG 1L NC
--- NOTE | 2019-10-13 15:45 | NUR ---
Pt. here from ICU room 109 and placed in bed in room 408. Rates pain to ribs/arm at 8/10.
[2019-10-13] MEDS: IPRATRPIUM/ALBUTEROL 0.5/2.5MG 3 ML NEBU. NEB SCH (20:56)
[2019-10-14 03:00] VITALS: BP 136/79
[2019-10-14 07:00] VITALS: BP 132/72
[2019-10-14] MEDS: HYDROcodone/APAP 5/325MG 1 TAB TABLET PO PRN (07:30)
[2019-10-14] MEDS: IPRATRPIUM/ALBUTEROL 0.5/2.5MG 3 ML NEBU. NEB SCH ×2 (07:31→11:26)
[2019-10-14] MEDS: BUDESONIDE 0.5 MG/2 ML NEBU. NEB SCH (07:31)
[2019-10-14] MEDS: amLODIPine BESYLATE 5 MG TABLET PO SCH (08:20)
[2019-10-14 11:00] VITALS: BP 134/74
--- NOTE | 2019-10-14 11:38 | CONS ---
DATE OF CONSULTATION: 10/14/2019 I was asked to see this 74-year-old gentleman for acute respiratory failure. HISTORY OF PRESENT ILLNESS: He has history of [id number] smoking, continues to smoke about 1 pack per day. He is a patient of Dr. Van. He is on Advair and albuterol at home. He fell while he was working on wet pavement. He did not lose consciousness before the fall. He was brought to the Emergency Room, he was found to have a small 7.1 mm hyperdensity within the right temporal lobe consistent with small hemorrhage/contusion. He also has right distal radial fracture, nondisplaced. He was in ICU, he was found to be hypoxemic yesterday. An ABG was done on 1 liter of oxygen yesterday, pH 7.4, pCO2 of 40, pO2 of 63. He has had left chest wall pain, so he has not been able to do deep breaths. He does have cough with sputum production, which is not worse than before. He denies any bronchitis before this happened. He denies fever or chills. He has right-sided chest wall pain and he has pain on his forehead area. PAST MEDICAL HISTORY: COPD, hypertension. PAST SURGICAL HISTORY: Carotid artery surgery. ALLERGIES: No known drug allergies. MEDICATIONS: Currently, he is on DuoNeb, Norvasc, Pulmicort, hydrocodone, acetaminophen p.r.n. SOCIAL HISTORY: History of [id number]-[id number] smoking, continues to smoke about 1 pack per day. FAMILY HISTORY: Hypertension. REVIEW OF SYSTEMS: As mentioned as above, other systems otherwise negative. PHYSICAL EXAMINATION: HEENT: Normocephalic. He has laceration on his right forehead. Pupils are equal, round, reactive to light. Nose is clear. Throat is clear. NECK: There is no JVD, lymphadenopathy or thyromegaly. CARDIOVASCULAR: Regular rate and rhythm. PMI is nondisplaced. CHEST: Inspection is normal. LUNGS: Clear to auscultation. ABDOMEN: Soft. Bowel sounds are good. There is no mass. EXTREMITIES: There is no edema. There is right sugar-tong splint on the right upper extremity. SKIN: Laceration as mentioned as above. LABORATORY DATA: I reviewed the following lab data: CT of the chest did not show any abnormality. CT of abdomen and pelvis showed mildly dilated ascending aorta, mildly enlarged prostate. CT of head as mentioned as above. X-ray of wrist shows nondisplaced fracture of the distal radius with intra-articular extension. ABG as mentioned as above. WBC 6.8, hemoglobin 14.4, platelets 190. Sodium 131, potassium 3.8, chloride 97, CO2 28, glucose 77, BUN 9, creatinine 0.7. IMPRESSION: 1. Acute respiratory failure, suspect it is secondary to not being able to do deep breaths secondary to right chest wall pain. CT of the chest did not show any lung contusion. He does have chronic obstructive pulmonary disease, the severity is not known. He does not have any acute infection. 2. Status post fall. 3. Intracerebral hemorrhage. 4. Radial fracture. 5. Tobacco habituation. 6. Chronic obstructive pulmonary disease. 7. Hypertension. PLAN AND RECOMMENDATIONS: 1. Titrate FiO2 to keep O2 saturation 90%. Agree with 6-minute walk. 2. Continue incentive spirometer, which I did start yesterday. 3. Continue bronchodilator. 4. Continue inhaled corticosteroid. He may resume his Advair when he is discharged home. 5. I had a long discussion with him regarding the smoking cessation. I have advised him to stop smoking forever. 6. Follow up with Neurosurgery and Orthopedic Surgery. 7. The findings and recommendations were discussed with the patient and Dr. Abdalla, attending physician. Thank you very much for allowing me to participate in care of this very nice gentleman. I have discussed the findings and recommendation. I have answered all of his questions. He does have a followup visit with Dr. Van. DOMINICK ALVARADO M.D. JENNIFER WOMACK/anushka JOB#: [id number] / [id number]
--- NOTE | 2019-10-14 12:35 | SNU/HH DC ---
DISCHARGE WITH HOME HEALTH DISCHARGE INFORMATION: Discharge Date: Oct 14, 2019 Final Diagnosis: intracranial bleed after a fall rigth arm injury hypoxia on COPD chest contusion after a fall Problems Medical Problems: (1) Closed head injury Status: Acute (2) Fall Status: Acute (3) Intracranial bleed Status: Acute (4) Laceration of right eyebrow Status: Acute Condition on Discharge: Stable HOME HEALTH: Face to Face: I certify this patient is under my care and that I, or a nurse practitioner or physician's mechanic's assistant working with me, had a face to face encounter that meets the physician face to face encounter requirements with this patient on 10/14/19. RN For Eval/Treatment: Yes Physical Therapy For: Evalulation/Treatment Occupational Therapy For: Evaluation/Treatment Pt Meets Homebound Status: Limited distance walking, Other: (new arm and chest injury from fall with ICH) POST DISCHARGE ORDERS: Activity Instructions for Disc: Activity as tolerated DIET AFTER DISCHARGE: Regular FOLLOW-UP: PCP to follow Home Health: Dr. Kellogg Follow up with: Neurosurgery in 2 weeks Follow Up With: Orthopedics in 2 weeks, Dr. Van next month TREATMENT/EQUIPMENT ORDERS: Adaptive Equipment Issued: Walker Discharge Respiratory Equipmen: Oxygen, CPAP (has already) CERTIFICATION STATEMENT: Certification Statement: Certification Statement: Based on the above finding, I certify that this patient is confined to the home and needs intermittent chcf care, physical therapy and/or speech therapy, or continues to need occupational therapy.~ This patient is under my care, and I have initiated the establishment of the plan of care.~ This patient will be followed by myself or a community physician who will periodically review the plan of care. Home Meds Reported Medications Hydrocodone Bit/Acetaminophen (HYDROCODONE-APAP 5-325 ) 1 Tab Tablet, 1 TAB PO PRN Q4-6HRS PRN for PAIN, #12 TAB 0 Refills 10/13/19 Albuterol Sulfate (ALBUTEROL SULFATE CONC NEB SOLN) 2.5 Mg/0.5 Ml Vial.neb, 2.5 MG NEB PRN Q6HRS PRN for , EACH 0 Refills 10/12/19 Lisinopril/Hydrochlorothiazide (LISINOPRIL-HCTZ 10-12.5 MG TAB) 1 Each Tablet, 1 TAB PO DAILY for , #30 TAB 5 Refills 7/31/20 Amlodipine Besylate (AMLODIPINE BESYLATE) 5 Mg Tablet, 5 MG PO DAILY for , TAB 10/12/19 Cholecalciferol (Vitamin D3) (VITAMIN D) 1,000 Unit Capsule, 5000 UNIT PO DAILY, CAP 11/05/16 Multivitamin (MULTIVITAMINS) 1 Each Tablet, 1 TAB PO DAILY, #30 TAB 2 Refills 11/05/16 Fluticasone/Salmeterol (ADVAIR 100-50 DISKUS) 1 Each Disk.w.dev, 1 PUFF IH BID, #1 INHALER 5 Refills 12/11/14 Discontinued Reported Medications Hydrocodone/Acetaminophen (Hydrocodone-Acetamin 5-325 mg) 1 Each Tablet, 1 EACH PO PRN Q4-6HRS PRN for PAIN, #12 TAB 10/13/19 [place]-3 Fatty Acids/Fish Oil (FISH OIL 1,000 MG CAPSULE) 1 Each Capsule, 1 EACH PO DAILY, CAP 11/05/16 Naproxen (NAPROXEN) 500 Mg Tablet, 1 TAB PO BID, #60 TAB 11/05/16 Aspirin (ASPIR 81) 81 Mg Tablet., 81 MG PO, TAB 08/06/16 TANISHA HUANG MD Oct 14, 2019 12:35
--- NOTE | 2019-10-14 12:38 | PDOC3 ---
Discharge Summary Visit Information Date of Admission: Oct 12, 2019 Date of Discharge: Oct 14, 2019 Final Diagnosis Right 7 mm intra-cerebral hemorrhage in the temporal lobe, repeat CT head is stable Right distal radial fracture, nondisplaced Hypertension COPD Admit to ICU for neuro management Pending neurosurgery evaluation Every 2 neurochecks Maintain blood pressure goals less than 180 Ortho recommendations, nonsurgical management. He should remain in the sugar tong splint and follow-up in 2 weeks. Nonweightbearing right upper extremity. Contraindicated for DVT prophylaxis ADA diet Full code Discussed with RN and SW Dispo pending transfer to [facility] after seen by Dr. Burt Surrogate decision maker is self Problems Medical Problems: (1) Closed head injury Status: Acute (2) Fall Status: Acute (3) Intracranial bleed Status: Acute (4) Laceration of right eyebrow Status: Acute Brief Hospital Course Allergies Allergies Coded Allergies Type Severity Reaction Last Updated Verified No Known Drug Allergies 11/30/16 No Vital Signs Vital Signs Date Time Temp Pulse Resp B/P (MAP) Pulse Ox O2 Delivery O2 Flow Rate FiO2 10/14/19 11:28 97 Nasal Cannula 1.0 10/14/19 11:00 98.2 80 18 134/74 (94) 98.2 Lab Results Laboratory Tests Test 10/13/19 14:10 O2 Saturation 91 % (92-99) Arterial Blood pH 7.40 (7.35-7.45) Arterial Blood pCO2 at Patient Temp 40 mmHg (35-46) Arterial Blood pO2 at Patient Temp 63 mmHg (65-108) Arterial Blood HCO3 24 mmol/L (21-28) Arterial Blood Base Excess -1 mmol/L (-3-3) FiO2 1l nc Laboratory Tests Test 10/13/19 14:10 O2 Saturation 91 % (92-99) Arterial Blood pH 7.40 (7.35-7.45) Arterial Blood pCO2 at Patient Temp 40 mmHg (35-46) Arterial Blood pO2 at Patient Temp 63 mmHg (65-108) Arterial Blood HCO3 24 mmol/L (21-28) Arterial Blood Base Excess -1 mmol/L (-3-3) FiO2 1l nc Brief Hospital Course Mr. Gomez is a 74 old w/ COPD, hypertension, carotid endarterectomy admit after a serious fall with headache and right hand pain. he had tripped and fell hard, was down 20 mnutes. needed help to get up, then headache, small ICH, neurosurg followed, stable, no surg needed, ICU admit > 24 hours, then floor, he was hypoxia when DC attempted 8,.1, COPD with TONYA, and new lung injury from fall caused atelectasis, better with nebs and treatment pulm consult seen, Dr. Sanders, 6 min walk before DC Discharge Information Condition at Discharge: Improved Follow Up: Weeks Disposition/Orders: D/C to Home w/ HH, Instructions/Orders Scheduled Amlodipine Besylate (Amlodipine Besylate) 5 Mg Tablet, 5 MG PO DAILY for , (Reported) Entered as Reported by: JIMMIE ANN RN on 10/12/19936 Last Action: Continued on 10/12/191341 by BRINDA NERI MD Cholecalciferol (Vitamin D3) (Vitamin D) 1,000 Unit Capsule, 5,000 UNIT PO DAILY, (Reported) Entered as Reported by: EDUARDO JANE on 11/05/161331 Last Action: Reviewed on 10/12/19941 by JIMMIE ANN RN Fluticasone/Salmeterol (Advair 100-50 Diskus) 1 Each Disk.w.dev, 1 PUFF IH BID, #1 Ref 5 (Reported) Entered as Reported by: GREGG TOBAR on 12/11/14715 Last Action: Converted on 10/12/191341 by BRINDA NERI MD Lisinopril/Hydrochlorothiazide (Lisinopril-Hctz 10-12.5 Mg Tab) 1 Each Tablet, 1 TAB PO DAILY for , #30 Ref 5 (Reported) Entered as Reported by: JIMMIE ANN RN on 10/12/19936 Last Action: New Order on 10/12/19936 by JIMMIE ANN RN Multivitamin (Multivitamins) 1 Each Tablet, 1 TAB PO DAILY, #30 Ref 2 (Reported) Entered as Reported by: EDUARDO JANE on 11/05/161331 Last Action: Reviewed on 10/12/19941 by JIMMIE ANN RN Scheduled PRN Albuterol Sulfate (Albuterol Sulfate Conc Neb Soln) 2.5 Mg/0.5 Ml Vial.neb, 2.5 MG NEB PRN Q6HRS PRN for , Ref 0 (Reported) Entered as Reported by: JIMMIE ANN RN on 10/12/19 0937 Last Action: Converted on 10/12/191341 by BRINDA NERI MD Hydrocodone Bit/Acetaminophen (Hydrocodone-Apap 5-325 ) 1 Tab Tablet, 1 TAB PO PRN Q4-6HRS PRN for PAIN, #12 Ref 0 (Reported) Entered as Reported by: VAN CLAYTON on 10/13/19 1223 Discontinued Medications Aspirin (Aspir 81) 81 Mg Tablet.dr, 81 MG PO, (Reported) Entered as Reported by: Marisabel Brock on 08/06/16 1033 Last Action: HELD on 10/12/191341 by BRINDA NERI MD Hydrocodone/Acetaminophen (Hydrocodone-Acetamin 5-325 mg) 1 Each Tablet, 1 EACH PO PRN Q4-6HRS PRN for PAIN, #12 (Reported) Discontinued Reason: Prescription changed Entered as Reported by: VAN CLAYTON on 10/13/19 1219 Naproxen (Naproxen) 500 Mg Tablet, 1 TAB PO BID, #60 (Reported) Entered as Reported by: EDUARDO JANE on 11/05/161331 Last Action: HELD on 10/12/191341 by BRINDA NERI MD [place]-3 Fatty Acids/Fish Oil (Fish Oil 1,000 Mg Capsule) 1 Each Capsule, 1 EACH PO DAILY, (Reported) Entered as Reported by: EDUARDO JANE on 11/05/161331 Last Action: HELD on 10/12/191341 by BRINDA NERI MD Patient Instructions Patient Instructions > 30 min face to face, 2 visits Justicifation of Admission Dx: Justifications for Admission: Justification of Admission Dx: Yes TANISHA HUANG MD Oct 14, 2019 12:38
--- NOTE | 2019-10-14 15:15 | NUR ---
Pt. discharged to home with Rx and home O2 tank, pt and son verbalized understanding of discharge instructions. DESTINY splint CDI.
== END 2019-10-14 15:10 | disposition home health service (06) | DRG 963 ==
LOC: ER 22:30 → 1 WEST ICU 10-12 02:17 → OBSVTOIN 10-12 02:17 → 4 NORTH 10-13 15:31
PROVIDERS: ADMIT Internal Medicine; ATTEND Internal Medicine
PROC: 5A09357 Assistance with Respiratory Ventilation, Less than 24 Consecutive Hours, Continuous Positive Airway Pressure (ICD-10-PCS; principal; 2019-10-13)
DX: S06.349A Traumatic hemorrhage of right cerebrum with loss of consciousness of unspecified duration, initial encounter (principal); J96.01 Acute respiratory failure with hypoxia; S27.309A Unspecified injury of lung, unspecified, initial encounter; S52.571A Other intraarticular fracture of lower end of right radius, initial encounter for closed fracture; J98.11 Atelectasis; S01.111A Laceration without foreign body of right eyelid and periocular area, initial encounter; J44.9 Chronic obstructive pulmonary disease, unspecified; I10 Essential (primary) hypertension; M19.90 Unspecified osteoarthritis, unspecified site; F17.200 Nicotine dependence, unspecified, uncomplicated; N40.0 Benign prostatic hyperplasia without lower urinary tract symptoms; I25.10 Atherosclerotic heart disease of native coronary artery without angina pectoris; Z96.641 Presence of right artificial hip joint; G47.33 Obstructive sleep apnea (adult) (pediatric); I77.819 Aortic ectasia, unspecified site; W01.0XXA Fall on same level from slipping, tripping and stumbling without subsequent striking against object, initial encounter; Y93.89 Activity, other specified; Y92.098 Other place in other non-institutional residence as the place of occurrence of the external cause; Y99.8 Other external cause status; Z82.49 Family history of ischemic heart disease and other diseases of the circulatory system
CPT/HCPCS: 36415; 36600; 70450; 70486; 71250; 73130; 74176; 80048; 82805; 85025; 85610; 85730; 94618; 94640; 94760; J2270; J2405; 99291-25; G0378; J7613; J7626

== ENCOUNTER → 2019-11-01 | Outpatient (CLI) | payer MEDICARE, BC ==
[2019-10-14 11:00] VITALS: BP 134/74
[~2019-11-01] MED LIST changes: +ALBU2.5V14 NEB; +AMLO5TAB10 PO; +HYDR-2759 PO; +HYDR-2761 PO; +LISI1TAB23 PO
--- NOTE | 2019-11-01 12:48 | KCIC ---
EXAM: CT HEAD WITHOUT CONTRAST. HISTORY: Intracranial hemorrhage. TECHNIQUE: Computed tomography of the head was performed without intravenous contrast. One or more of the following individualized dose reduction techniques were utilized for this examination: 1. Automated exposure control. 2. Adjustment of the mA and/or kV according to patient size. 3. Use of iterative reconstruction technique. COMPARISON: 10/13/2019. FINDINGS: Previously noted right temporal subarachnoid clot is no longer detectable. Hypoattenuation within the periventricular white matter indicates mild chronic microangiopathic change. Prominence of the lateral ventricles and hemispheric sulci indicates mild atrophy for patient age. There is mild mucosal thickening throughout the paranasal sinuses. The orbits are unremarkable. There is a small amount of fluid in the right mastoid air cells. The calvarium reveals no suspicious lesions. There are atherosclerotic calcifications of the internal carotid and vertebral arteries. IMPRESSION: 1. Interval resolution of trace right temporal subarachnoid hemorrhage. Electronically signed by: Constance Louis MD (11/01/2019 12:45 PM) [id number]
== END | disposition home or self-care (01) ==
LOC: KCIC CT 12:22
PROVIDERS: ATTEND Neurological Surgery
DX: I61.8 Other nontraumatic intracerebral hemorrhage (principal); I65.29 Occlusion and stenosis of unspecified carotid artery; I65.09 Occlusion and stenosis of unspecified vertebral artery; J32.9 Chronic sinusitis, unspecified
CPT/HCPCS: 70450

== ENCOUNTER → 2020-03-28 | Outpatient (CLI) | payer MEDICARE, BC ==
[~2020-03-28] MED LIST changes: +AMLO-186 PO; +AMLO-187 PO; -AMLO10TA8 PO; -AMLO5TAB10 PO
== END ==
LOC: LAB 10:35
PROVIDERS: ATTEND Orthopaedic Surgery
DX: Z01.812 Encounter for preprocedural laboratory examination (principal); Z20.828 Contact with and (suspected) exposure to other viral communicable diseases
CPT/HCPCS: U0003

== ENCOUNTER 2020-04-01 06:14 | Day surgery (SDC) | payer MEDICARE, BC ==
[~2020-04-01] VITALS: Ht 172.7 cm; Wt 72.6 kg
[~2020-04-01 06:14] MED LIST changes: +ceFAZolin SODIUM IV Push 1 GM VIAL. IVP ONE
[2020-04-01] MEDS ORDERED: MORPHINE SULFATE 2 MG/ML VIAL. IV PRN (07:00)
[2020-04-01] MEDS ORDERED: HYDROmorphone 2 MG/ML VIAL IV PRN (07:00)
[2020-04-01] MEDS ORDERED: ONDANSETRON PF 4 MG/2 ML VIAL. IV PRN (07:00)
[2020-04-01] MEDS ORDERED: fentaNYL PF VIAL 100 MCG/2 ML VIAL IV PRN ×2 (07:00)
[2020-04-01] MEDS ORDERED: LIDOCAINE 1% PF 2 ML VIAL. ID PRN (07:00)
[2020-04-01] MEDS ORDERED: IV RINGERS,LACTATED 1000ML 1,000 ML IV SCH (07:00)
[2020-04-01] MEDS ORDERED: PROCHLORPERAZINE 10 MG/2 ML VIAL. IV PRN (07:00)
[2020-04-01] MEDS ORDERED: PROPOFOL 10 MG/ML (20ML) VIAL. IV ONE ×3 (07:04→07:46)
[2020-04-01] MEDS ORDERED: LIDOCAINE 2% PF 5 ML VIAL. ONE ×3 (07:04→07:44)
--- NOTE | 2020-04-01 07:15 | DISCH ---
DISCHARGE INSTRUCTIONS Condition on Discharge Condition on Discharge: Stable Activity After Discharge Activity Instructions for Disc: Other, see below (Avoid hard grasp or pressure on incision, may do fine motor use such as eating writing typing) Bathing Instructions: Shower-keep dressing dry Lifting Instructions after Dis: No heavy lifting Diet after Discharge Diet after Discharge: Regular Wound Incision Care Wound/Incision Care: Keep wound elevated, Do not change dressing (Keep dressing dry and intact call if soiled) Contacting the DRCésar after DC Call your doctor for: Concerns you may have Follow-Up Follow up with: Dr. Charlton 10 days ABHIJIT CHARLTON MD Apr 01, 2020 07:15
[2020-04-01] MEDS ORDERED: KETOROLAC 30 MG/ML VIAL. ONE (07:29)
[2020-04-01 08:35] VITALS: BP 154/56
--- NOTE | 2020-04-01 10:20 | PDOC4 ---
Operative Note Operative Note Date of surgery: 04/01/2020 Preoperative diagnosis: Right carpal tunnel syndrome Postoperative diagnosis: Same with moderate median nerve compression at the carpal tunnel Operative procedure: Right carpal tunnel release Surgeon: Latesha Anesthesia: Garrett block Estimated blood loss: 1 cc Complications: None Operative indications: Please see my orthopedic clinic note for detailed operative indications and note that the patient had paresthesia symptoms unresponsive to nonoperative management and confirmed by EMG testing which showed median nerve compression at the carpal tunnel. I had gone over with him the anatomy structure and function of the area of the rationale for carpal tunnel release as well as nonoperative treatment alternatives and the risks of possible nerve or blood vessel damage incisional tenderness infection medical or other anesthetic complications among others and the possibility of incomplete relief even if the pressure is relieved from the nerve. He wishes to proceed with surgical evaluation and treatment Operative text: Patient was identified procedure verified patient placed in the supine position on the operating table. After adequate amounts of Shipman block anesthesia were administered the right upper extremity was prepped and draped in standard sterile fashion and timeout was performed patient procedure identified and verified. A longitudinal incision was made just distal to the proximal wrist crease dissection carried out to the transverse carpal ligament which was sharply divided under direct vision and the proximal and distal extent of the transverse carpal ligament were divided completely under direct vision and complete release verified visually and palpably. Irrigation carried out normal saline solution closure accomplished with nylon suture. Sterile soft dressings were applied. Fingers were noted to be warm pink on deflation of the tourniquet and patient was returned to recovery room in stable condition having tolerated procedure well ABHIJIT OMER MD Apr 01, 2020 10:20
== END 2020-04-01 09:10 | disposition home or self-care (01) ==
LOC: SURG 06:14
PROVIDERS: ATTEND Orthopaedic Surgery
DX: G56.01 Carpal tunnel syndrome, right upper limb (principal); I25.10 Atherosclerotic heart disease of native coronary artery without angina pectoris; E78.00 Pure hypercholesterolemia, unspecified; I10 Essential (primary) hypertension; J44.9 Chronic obstructive pulmonary disease, unspecified; G47.30 Sleep apnea, unspecified; K21.9 Gastro-esophageal reflux disease without esophagitis; M19.90 Unspecified osteoarthritis, unspecified site; F17.210 Nicotine dependence, cigarettes, uncomplicated; Z79.899 Other long term (current) drug therapy; Z98.890 Other specified postprocedural states; Z72.89 Other problems related to lifestyle
CPT/HCPCS: 64721; J0690; J1885; J2704

== ENCOUNTER → 2020-08-20 | Outpatient (CLI) | payer MEDICARE, BC ==
[~2020-08-20] MED LIST changes: -ceFAZolin SODIUM IV Push 1 GM VIAL. IVP ONE
--- NOTE | 2020-08-20 13:18 | KCIC ---
CT LOW DOSE LUNG SCREEN INDICATION: Lung cancer screening, smoker 40+ yrs., 1 pk.day. COPD, emphysema COMPARISON STUDY: CT chest 10/12/2019. TECHNIQUE: Unenhanced axial images were obtained through the lungs and upper abdomen using low dose technique. Coronal and sagittal multiplanar reformatted images were also obtained. PQRS compliance statement: One or more of the following individualized dose reduction techniques were utilized for this examinat ion: 1. Automated exposure control 2. Adjustment of the mA and/or kV according to patient size 3. Use of iterative reconstruction technique FINDINGS: Lung Nodules: Stable right lower lobe 5 mm nodule (series 6 image 219). Lungs and Airways: No pulmonary mass or consolidation. Dependent and subsegmental atelectasis. Interl obular emphysema. Endobronchial mucous plugging. Pleura: Normal pleural spaces. Heart and Mediastinum: The visualized portions of the thyroid gland are normal in size and attenuatio n. No axillary or supraclavicular lymphadenopathy. Few conspicuous but not pathologically enlarged by CT criteria mediastinal lymph nodes. Normal cardiac size. No pericardial effusion. Coronary artery a therosclerotic disease. Atherosclerosis of the thoracic aorta and branch vessels. Abdomen: The visualized abdominal organs demonstrate no abnormality. Bones and Soft Tissues: Degenerative changes of the spine with multilevel bridging osteophytes. IMPRESSION: 1. Stable right lower lobe 5 mm nodule. Lung-RADS Category: 2 Management Recommendation: Follow up low-dose chest CT in one year. 2. Emphysema. Electronically signed by: Pedro Shields MD (08/20/2020 1:16 PM) [id number]
== END ==
LOC: KCIC 11:16
PROVIDERS: ATTEND Family Medicine
DX: Z12.2 Encounter for screening for malignant neoplasm of respiratory organs (principal); J43.9 Emphysema, unspecified; R91.1 Solitary pulmonary nodule; F17.210 Nicotine dependence, cigarettes, uncomplicated
CPT/HCPCS: 71271

== ENCOUNTER → 2021-02-11 | Day surgery (SDC) | payer MEDICARE, BC ==
[~2021-02-11] VITALS: Ht 172.7 cm; Wt 69.5 kg
[~2021-02-11] MED LIST changes: +ASPI-630 PO; +IV RINGERS,LACTATED 1000ML 1,000 ML IV SCH; +LIDOCAINE 2% PF 5 ML VIAL. ONE; -LISI1TAB23 PO; +LISI1TAB35 PO; +PROPOFOL 10 MG/ML (20ML) VIAL. IV ONE
[2021-02-11 07:30] VITALS: BP 161/71
--- NOTE | 2021-02-11 08:26 | HP ---
DATE OF SERVICE: 02/11/2021 ADMIT DATE: 02/11/2021 UPDATED HISTORY AND PHYSICAL REASON: History of colon polyps. HISTORY OF PRESENT ILLNESS: A 75-year-old male whose past medical history is significant for hypertension as well as asthma, seen for screening colon exam. Previous exams have revealed polyps and diverticulosis. Bowel habits are regular without diarrhea or constipation. Family history is negative for colon cancer. Otherwise without additional complaints. PAST MEDICAL HISTORY: Peripheral vascular disease, hypertension, diverticulosis, colon polyps, asthma/emphysema. ALLERGIES: None. MEDICATIONS: Include albuterol, amlodipine, aspirin, vitamin D, Advair, lisinopril and multivitamins. FAMILY HISTORY: Noncontributory. SOCIAL HISTORY: He is a social drinker and smoker. PAST SURGICAL HISTORY: Significant for an appendectomy. REVIEW OF SYSTEMS: Per records. PHYSICAL EXAMINATION: GENERAL: Reveals a well-nourished, well-developed male who is alert, cooperative, in no acute distress. VITAL SIGNS: Temp 98, pulse 72, respiratory rate 22. LUNGS: Clear. CARDIOVASCULAR: Reveals an S1, S2, without S3, S4 or appreciable murmur. ABDOMEN: Reveals a soft abdomen, normal bowel sounds without appreciable hepatosplenomegaly. IMPRESSION: History of colonic polyps. Surveillance exam is recommended at this time. Risks and benefits have been discussed. The patient previously was willing to proceed. [place] DR: Jovani TID: [id number]
[2021-02-11 08:54] VITALS: BP 135/62
--- NOTE | 2021-02-16 09:07 | PATHOLOGY ---
[facility] Accession Number: [id number] . 01 Material submitted: . rectum - RECTUM POLYP BIOPSY . 01 Clinical history: . COLON POLYPS . 02 Diagnosis: Colorectal biopsies, rectal polyps: - Hyperplastic polyps. (JPM:manav; 02/16/2021) S 02/16/2021 0846 Local . 02 Comment: There are no adenomatous changes or evidence of malignancy. (JPM:manav; 02/16/2021) . 02 Electronically signed: . Monty Pollock MD, Pathologist NPI- [id number] . 01 Gross description: . The specimen is received in formalin, labeled "Roberto Carlos Gomez, rectum polyp biopsy". Received are two segments of pale bueno tissue measuring 0.3 and 0.4 cm in maximum dimensions. The specimen is submitted entirely in cassette A1. ([facility]; 02/13/2021) QAC/QAC 02/13/2021 1248 Local . 02 Pathologist provided ICD-10: K62.1 . 02 CPT . 218009 Specimen Comment: A courtesy copy of this report has been sent to [phone] Specimen Comment: [id number] Specimen Comment: Report sent to / DR DAVIS Performed at: 01 [facility] [address], [place], [place] [id number] MD Gino Castro MD Phone: [phone] Performed at: 02 [facility] [address], [place] [id number] MD Monty Pollock MD Phone: [phone]
== END | disposition home or self-care (01) ==
LOC: ENDOS 06:59
PROVIDERS: ATTEND Internal Medicine Gastroenterology
DX: Z12.11 Encounter for screening for malignant neoplasm of colon (principal); K62.1 Rectal polyp; K64.0 First degree hemorrhoids; K63.89 Other specified diseases of intestine; I10 Essential (primary) hypertension; I73.9 Peripheral vascular disease, unspecified; J43.9 Emphysema, unspecified; I25.10 Atherosclerotic heart disease of native coronary artery without angina pectoris; E78.00 Pure hypercholesterolemia, unspecified; K21.9 Gastro-esophageal reflux disease without esophagitis; M19.90 Unspecified osteoarthritis, unspecified site; G47.30 Sleep apnea, unspecified; F17.210 Nicotine dependence, cigarettes, uncomplicated; Z79.82 Long term (current) use of aspirin; Z79.899 Other long term (current) drug therapy; Z98.890 Other specified postprocedural states; Z86.010 Personal history of colon polyps; Z72.89 Other problems related to lifestyle
CPT/HCPCS: 45380; J2704

== ENCOUNTER 2021-05-22 14:34 | Emergency (ER) | payer MEDICARE, BC ==
[~2021-05-22] VITALS: Ht 172.7 cm; Wt 70.5 kg
[~2021-05-22 14:34] MED LIST changes: -IV RINGERS,LACTATED 1000ML 1,000 ML IV SCH; -LIDOCAINE 2% PF 5 ML VIAL. ONE; -PROPOFOL 10 MG/ML (20ML) VIAL. IV ONE
[2021-05-22] MEDS ORDERED: IPRATRPIUM/ALBUTEROL 0.5/2.5MG 3 ML NEBU. NEB ONE (15:00)
[2021-05-22] MEDS ORDERED: methylPREDNISolone SOD SUCC PF 125 MG/2 ML VIAL. IV ONE (15:00)
[2021-05-22 15:22] LABS: BASO % 0 % (0-3); EOS % 0 % (0-3); HEMATOCRIT 38.4 % (39.0-53.0); HEMOGLOBIN 13.1 g/dL (13.0-17.5); LYMPH # 0.6 x10^3/uL (1.0-4.8); LYMPH % 6 % (24-48); MEAN CORPUSCULAR HEMOGLOBIN 36 pg (25-35); MEAN CORPUSCULAR HGB CONC 34 g/dL (31-37); MEAN CORPUSCULAR VOLUME 104 fL (79-100); MONO # 0.9 x10^3/uL (0.0-1.1); MONO % 9 % (0-9); NEUT # 8.9 x10^3/uL (1.8-7.7); NEUT % 85 % (31-73); PLATELET COUNT 199 x10^3/uL (140-400); RED BLOOD COUNT 3.68 x10^6/uL (4.30-5.70); RED CELL DISTRIBUTION WIDTH 13.3 % (11.5-14.5); WHITE BLOOD COUNT 10.5 x10^3/uL (4.0-11.0)
[2021-05-22 15:29] LABS: PROTHROMBIN TIME PATIENT 14.8 SEC (11.7-14.0)
[2021-05-22 15:30] LABS: ISTAT BE VENOUS 8 mmol/L (0-3); ISTAT HCO3 VEN 33 mmol/L (24-28); ISTAT PCO2 VEN 52 mmHg (41-51); ISTAT PH VEN 7.41 (7.32-7.42); ISTAT PO2 VEN 49 mmHg (20-40); ISTAT SAT O2 VEN 84 %; ISTAT TCO2 VEN 34 mmol/L (21-32)
[2021-05-22 15:33] LABS: D-DIMER 2.94 ug/mlFEU (0.00-0.50)
[2021-05-22 15:37] LABS: CALCIUM 8.6 mg/dL (8.5-10.1); CREATININE 0.9 mg/dL (0.7-1.3); GFR 82.7; POTASSIUM 3.5 mmol/L (3.5-5.1)
[2021-05-22 15:40] LABS: INFLUENZA A PATIENT NEGATIVE (NEGATIVE); INFLUENZA B PATIENT NEGATIVE (NEGATIVE)
[2021-05-22 15:42] LABS: ALBUMIN 2.6 g/dL (3.4-5.0); ALBUMIN/GLOBULIN RATIO 0.8 (1.0-1.7); MAGNESIUM 1.9 mg/dL (1.8-2.4); TOTAL BILIRUBIN 0.8 mg/dL (0.2-1.0); TOTAL PROTEIN 5.8 g/dL (6.4-8.2)
--- NOTE | 2021-05-22 15:59 | RAD ---
EXAM: AP View of the chest DATE: 05/22/2021 3:00 PM INDICATION: Reason: dyspnea COMPARISON: 03/26/2019 FINDINGS: The heart is not enlarged. Mediastinal and hilar contours are normal. Airspace opacities right infrahilar lung and right lung base likely consolidative process such as pne umonia. Interstitial prominence. No pleural effusion or pneumothorax. IMPRESSION: Right mid and lower lung airspace opacities likely consolidative process such as pneumonia. Imaging f ollow up to resolution is recommended. Electronically signed by: Ion Kwong MD (05/22/2021 3:57 PM) MAYRA
[2021-05-22] MEDS ORDERED: IOHEXOL 350 MG/ML 100 ML VIAL. IV ONE (16:15)
[2021-05-22] MEDS ORDERED: CONTRAST GIVEN. MC PRN (16:30)
[2021-05-22] MEDS ORDERED: AZITHROMYCIN 250 MG TABLET. PO ONE (17:00)
[2021-05-22] MEDS ORDERED: cefTRIAXone IV Push 1 GM VIAL. IVP ONE (17:00)
--- NOTE | 2021-05-22 17:12 | RAD ---
CTA CHEST History: Dyspnea Technique: CT of the chest was performed with intravenous contrast. PE protocol. Maximum intensity pr ojection coronal and sagittal reconstructions were performed. Exposure: One or more of the following individualized dose reduction techniques were utilized for thi s examination: 1. Automated exposure control 2. Adjustment of the mA and/or kV according to patient size 3. Use of iterative reconstruction technique. Comparison: August 20, [address] Angiogram neck May 03, 2018. CT angiogram October 28, 2017 Findings: Chest: No pulmonary embolus. Moderate atheroma splenic within the aorta. No aortic aneurysm or dissec tion. Minimal pericardial effusion. Enlarged right hilar lymph nodes largest measures 2.3 x 1.5 cm. Small to moderate right pleural effusion with loculated component in the major fissure. Extensive rig ht lower lobe consolidations. Additional ground glass opacities within the right upper and right midd le lobes. Bilateral lower lobe mucous plugging, right greater than left. Mild left lower lobe linear atelectasis. Severe pulmonary emphysema. No pneumothorax. Left upper lobe 5 mm pulmonary nodule (series 3 image 79), new compared to prior. Previously seen rig ht lower lobe pulmonary nodules obscured by consolidation. 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 Bones: DISH related changes of the thoracic spine. Impression: 1. No pulmonary embolism. 2. Multifocal consolidations within the right lung most prominent in the right lower lobe, concernin g for pneumonia. Recommend [address] without contrast follow-up to ensure resolution. 3. Right hilar lymphadenopathy, likely reactive. Recommend attention on follow-up. 4. Small to moderate right pleural effusion with loculated component in the major fissure. 5. Bilateral mucus plugging increased compared to prior. 6. New left upper lobe pulmonary nodule. Recommend attention on follow-up. 7. 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 8. 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 Electronically signed by: Fabian Mcdonnell DO (05/22/2021 5:09 PM) [facility]
--- NOTE | 2021-05-22 17:29 | EKG ---
[facility] [address] [place] [address] Test Date: 2021-05-22 Test Time: 14:47:45 Pat Name: JN CARDONA Department: Room: Gender: Information Assurance Manager: : 1945 Requested By: MEGHAN LO Order Number: [id number] Reading MD: Waqar Faria Measurements Intervals [place] Rate: 94 P: 31 HI: 140 QRS: 81 QRSD: 80 T: 57 QT: 318 QTc: 398 Interpretive Statements SINUS RHYTHM NORMAL ECG Electronically Signed On 05-23-2021 18:36:17 [employer]IRT CONTRACTOR by Waqar Faria
[2021-05-22] MEDS ORDERED: AMOX1TAB11 PO (17:45)
[2021-05-22] MEDS ORDERED: ALBU2.5V8 IH (17:45)
[2021-05-22] MEDS ORDERED: AZIT500T PO (17:45)
--- NOTE | 2021-05-22 17:45 | PHYS DOC ---
Past Medical History Past Medical History: COPD, Hypertension Additional Past Medical Histor: AAA, CAROTID STENOSIS Past Surgical History: Other Additional Past Surgical Histo: CAROTID ARTERY SURG Smoking Status: Current Every Day Smoker Alcohol Use: Heavy Additional Information: DRINKS 6 PACK EVERYDAY Drug Use: None Adult General Chief Complaint Chief Complaint: SHORTNESS OF BREATH HPI HPI Patient is a 75 year old male with cough and shortness of breath. Symptoms present for several days. He is not sure whether he had a fever at home. Cough is been mildly productive. No chest pain though the patient does feel short of breath with coughing spells as well as with minimal exertion. He states his pulse ox falls into the 80s at home without oxygen. No sick contacts he is aware of. Review of Systems Review of Systems Constitutional: Reports possible fever Eyes: Denies change in visual acuity or eye pain HENT: Denies sore throat Respiratory: Reports shortness of breath Cardiovascular: Denies chest pain GI: Denies abd pain : Denies dysuria Musculoskeletal: Denies back or extremity injury Integument: Denies rash or skin lesions Neurologic: Denies headache, focal weakness or sensory changes All other systems were reviewed and found to be within normal limits, except as documented in this note. Current Medications Current Medications Current Medications Medications (Trade) Dose Ordered Sig/Lyndsey Start Time Stop Time Status Last Admin Dose Admin Albuterol/ Ipratropium (Duoneb) 3 ml 1X ONCE 05/22/21 15:00 05/22/21 15:01 DC 05/22/21 15:31 3 ML Azithromycin (Zithromax) 500 mg 1X ONCE 05/22/21 17:00 05/22/21 17:01 DC Ceftriaxone Sodium (Rocephin) 1 gm 1X ONCE 05/22/21 17:00 05/22/21 17:01 DC Info (CONTRAST GIVEN -- Rx MONITORING) 1 each PRN DAILY PRN 05/22/21 16:30 05/24/21 16:29 Iohexol (Omnipaque 350 Mg/ml) 90 ml 1X ONCE 05/22/21 16:15 05/22/21 16:17 DC 05/22/21 16:26 90 ML Methylprednisolone Sodium Succinate (SOLU-Medrol 125MG VIAL) 125 mg 1X ONCE 05/22/21 15:00 05/22/21 15:01 DC 05/22/21 15:19 125 MG Allergies Allergies Allergies Coded Allergies Type Severity Reaction Last Updated Verified No Known Drug Allergies 02/11/21 No Physical Exam Physical Exam Constitutional: Well developed, well nourished, no acute distress, non-toxic appearance. HENT: Normocephalic, atraumatic, bilateral external ears normal, mucosa moist, nose normal. Eyes: EOMI, conjunctiva normal, no discharge. Neck: Normal range of motion, supple, no stridor, no meningeal signs. Cardiovascular: Regular rate and rhythm Lungs & Thorax: Bilateral breath sounds diminished with scattered wheezes Abdomen: Soft, no tenderness or obvious masses Skin: Warm, dry, no erythema, no rash. Extremities: No tenderness, no cyanosis, no clubbing, ROM intact, no edema. Neurologic: Alert and oriented, normal motor function, normal sensory function, no focal deficits noted. Psychologic: Affect normal, judgement normal, mood normal. Current Patient Data Vital Signs Vital Signs Date Time Temp Pulse Resp B/P (MAP) Pulse Ox O2 Delivery O2 Flow Rate FiO2 05/22/21 15:33 96 05/22/21 14:42 98.0 92 22 137/63 (87) Room Air 98.0 Lab Values Laboratory Tests Test 05/22/21 15:00 05/22/21 15:22 White Blood Count 10.5 x10^3/uL (4.0-11.0) Red Blood Count 3.68 x10^6/uL (4.30-5.70) L Hemoglobin 13.1 g/dL (13.0-17.5) Hematocrit 38.4 % (39.0-53.0) L Mean Corpuscular Volume 104 fL (79-100) H Mean Corpuscular Hemoglobin 36 pg (25-35) H Mean Corpuscular Hemoglobin Concent 34 g/dL (31-37) Red Cell Distribution Width 13.3 % (11.5-14.5) Platelet Count 199 x10^3/uL (140-400) Neutrophils (%) (Auto) 85 % (31-73) H Lymphocytes (%) (Auto) 6 % (24-48) L Monocytes (%) (Auto) 9 % (0-9) Eosinophils (%) (Auto) 0 % (0-3) Basophils (%) (Auto) 0 % (0-3) Neutrophils # (Auto) 8.9 x10^3/uL (1.8-7.7) H Lymphocytes # (Auto) 0.6 x10^3/uL (1.0-4.8) L Monocytes # (Auto) 0.9 x10^3/uL (0.0-1.1) Eosinophils # (Auto) 0.0 x10^3/uL (0.0-0.7) Basophils # (Auto) 0.0 x10^3/uL (0.0-0.2) Prothrombin Time 14.8 SEC (11.7-14.0) H Prothrombin Time INR 1.2 (0.8-1.1) H Activated Partial Thromboplast Time 37 SEC (24-38) D-Dimer (Patricia) 2.94 ug/mlFEU (0.00-0.50) H Sodium Level 138 mmol/L (136-145) Potassium Level 3.5 mmol/L (3.5-5.1) Chloride Level 98 mmol/L (98-107) Carbon Dioxide Level 31 mmol/L (21-32) Anion Gap 9 (6-14) Blood Urea Nitrogen 27 mg/dL (8-26) H Creatinine 0.9 mg/dL (0.7-1.3) Estimated GFR (Cockcroft-Gault) 82.7 BUN/Creatinine Ratio 30 (6-20) H Glucose Level 100 mg/dL (70-99) H Lactic Acid Level 1.4 mmol/L (0.4-2.0) Calcium Level 8.6 mg/dL (8.5-10.1) Magnesium Level 1.9 mg/dL (1.8-2.4) Total Bilirubin 0.8 mg/dL (0.2-1.0) Aspartate Amino Transferase (AST) 25 U/L (15-37) Alanine Aminotransferase (ALT) 29 U/L (16-63) Alkaline Phosphatase 164 U/L (46-116) H Troponin I High Sensitivity 7 ng/L (4-75) QN-Eqb-W-Type Natriuretic Peptide 414 pg/mL (0-124) H Total Protein 5.8 g/dL (6.4-8.2) L Albumin 2.6 g/dL (3.4-5.0) L Albumin/Globulin Ratio 0.8 (1.0-1.7) L Influenza Type A Antigen Negative (NEGATIVE) Influenza Type B Antigen Negative (NEGATIVE) SARS-CoV-2 Antigen (Rapid) Negative (NEGATIVE) POC Venous pH 7.41 (7.32-7.42) POC Venous pCO2 52 mmHg (41-51) H POC Venous pO2 49 mmHg (20-40) H Venous Blood HCO3 33 mmol/L (24-28) H POC Venous O2 Saturation (Christa) 84 % POC FiO2 21.0 Laboratory Tests 05/22/21 15:00 Laboratory Tests 05/22/21 15:00 EKG EKG [] Interpretation Time: Code EKG demonstrates sinus rhythm with a rate of 94. NM, QRS and QT corrected intervals within normal limits. No T-segment ovation depression. Radiology/Procedures Radiology/Procedures [] Impressions: PATIENT: JN CARDONA WACCOUNT: [id number]#: [id number] : 1945 LOCATION: ER AGE: 75 SEX: M EXAM STATUS: REG ER ORD. PHYSICIAN: MEGHAN LO MD REASON: dyspnea PROCEDURE: CHEST AP ONLY EXAM: AP View of the chest DATE: 05/22/2021 3:00 PM INDICATION: Reason: dyspnea COMPARISON: 03/26/2019 FINDINGS: The heart is not enlarged. Mediastinal and hilar contours are normal. Airspace opacities right infrahilar lung and right lung base likely cons olidative process such as pneumonia. Interstitial prominence. No pleural effusion or pneumothorax. IMPRESSION: Right mid and lower lung airspace opacities likely consolidative process such as pneumonia. Imaging follow up to resolution is recommended. Electronically signed by: Ion Reyes MD (05/22/2021 3:57 PM) [facility] and SIGNED BY: ION REYES MD DATE: 05/22/21 [id number] PATIENT: JN CARDONA ACCOUNT: [id number] : 1945 LOCATION: ER AGE: 75 SEX: M EXAM STATUS: REG ER ORD. PHYSICIAN: MEGHAN LO MD REASON: dyspnea, elevated d-dimer PROCEDURE: CT ANGIOGRAPHY CHEST CTA CHEST History: Dyspnea Technique: CT of the chest was performed with intravenous contrast. PE protocol. Maximum intensity projection coronal and sagittal reconstructions were performed. Exposure: One or more of the following individualized dose reduction techniques were utilized for this examination: 1. Automated exposure control 2. Adjustment of the mA and/or kV according to patient size 3. Use of iterative reconstruction technique. Comparison: August 20, [address] Angiogram neck May 03, 2018. CT angiogram October 28, 2017 Findings: Chest: No pulmonary embolus. Moderate atheroma splenic within the aorta. No aortic aneurysm or dissection. Minimal pericardial effusion. Enlarged right hilar lymph nodes largest measures 2.3 x 1.5 cm. Small to moderate right pleural effusion with loculated component in the major fissure. Extensive right lower lobe consolidations. Additional ground glass opacities within the right upper and right middle lobes. Bilateral lower lobe mucous plugging, right greater than left. Mild left lower lobe linear atelectasis. Severe pulmonary emphysema. No pneumothorax. Left upper lobe 5 mm pulmonary nodule (series 3 image 79), new compared to prior. Previously seen right lower lobe pulmonary nodules obscured by consolidation. 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 Bones: DISH related changes of the thoracic spine. Impression: 1. No pulmonary embolism. 2. Multifocal consolidations within the right lung most prominent in the right lower lobe, concerning for pneumonia. Recommend [address] without contrast follow-up to ensure resolution. 3. Right hilar lymphadenopathy, likely reactive. Recommend attention on follow- up. 4. Small to moderate right pleural effusion with loculated component in the major fissure. 5. Bilateral mucus plugging increased compared to prior. 6. New left upper lobe pulmonary nodule. Recommend attention on follow-up. 7. 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 8. 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 Electronically signed by: Fabian Mcdonnell DO (05/22/2021 5:09 PM) [facility] DICTATED and SIGNED BY: FABIAN MCDONNELL DO DATE: 05/22/21 [id number] Course & Med Decision Making Course & Med Decision Making Pertinent Labs and Imaging studies reviewed. (See chart for details) [] This 75-year-old male pneumonia. CT is negative for pulmonary embolism. We have ordered blood cultures as well as ceftriaxone and Zithromax. The patient did not want to be admitted to the hospital and was adamant that he is not going to stay. I did recommend hospitalization however patient is competent to make his own decisions. He recognizes that he may get worse and develop worsening breathing issues or cardiac issues but still would like to leave. We will discharge him with prescriptions for Augmentin and Zithromax as well as albuterol and have him follow-up with his primary care physician soon as po ssible, return to the emergency department at any time for admission, he is discharged at this time. Dragon Disclaimer Dragon Disclaimer This electronic medical record was generated, in whole or in part, using a voice recognition dictation system. Departure Departure Impression: Primary Impression: Pneumonia Disposition: HOME / SELF CARE / HOMELESS Condition: IMPROVED Referrals: LOI DAVIS MD (PCP) Patient Instructions: Pneumonia, Adult Scripts Albuterol Sulfate (PROAIR HFA INHALER) 8.5 Gm Hfa.aer.ad 2 PUFF IH PRN Q4-6HRS PRN for wheezing for 21 Days, #1 INHALER 0 Refills Prov: MEGHAN LO MD 05/22/21 Azithromycin (ZITHROMAX) 500 Mg Tablet 500 MG PO DAILY for ANTI-BIOTIC, #5 TAB 0 Refills Prov: MEGHAN LO MD 05/22/21 Amoxicillin/Potassium Clav (AMOX TR-K CLV 875-125 MG TAB) 1 Each Tablet 1 TAB PO BID, #20 TAB Prov: MEGHAN LO MD 05/22/21 MEGHAN LO MD May 22, 2021 17:45
[2021-05-22 17:50] VITALS: BP 145/67
== END 2021-05-22 18:03 | disposition home or self-care (01) ==
LOC: ER 14:34
DX: J18.9 Pneumonia, unspecified organism (principal); Z20.822 Contact with and (suspected) exposure to COVID-19; J44.9 Chronic obstructive pulmonary disease, unspecified; I10 Essential (primary) hypertension; F17.200 Nicotine dependence, unspecified, uncomplicated; F10.20 Alcohol dependence, uncomplicated; Y90.9 Presence of alcohol in blood, level not specified
CPT/HCPCS: 36415; 71045; 71275; 80053; 82803; 83605; 83735; 83880; 84484; 85025; 85379; 85610; 85730; 87428; 93005; 94640; 96374; 96375; 99285; J0696; J2930; Q9967

== ENCOUNTER 2021-05-27 11:42 | Emergency (ER) | payer MEDICARE, BC ==
[~2021-05-27] VITALS: Ht 182.9 cm; Wt 80.0 kg
[~2021-05-27 11:42] MED LIST changes: +ALBU2.5V8 IH; +AMOX1TAB11 PO; +AZIT500T PO
[2021-05-27] MEDS ORDERED: fentaNYL PF VIAL 100 MCG/2 ML VIAL IVP ONE (12:00)
[2021-05-27 12:14] LABS: BASO % 0 % (0-3); EOS % 0 % (0-3); HEMATOCRIT 35.9 % (39.0-53.0); HEMOGLOBIN 11.9 g/dL (13.0-17.5); LYMPH # 0.6 x10^3/uL (1.0-4.8); LYMPH % 5 % (24-48); MEAN CORPUSCULAR HEMOGLOBIN 34 pg (25-35); MEAN CORPUSCULAR HGB CONC 33 g/dL (31-37); MEAN CORPUSCULAR VOLUME 103 fL (79-100); MONO # 0.4 x10^3/uL (0.0-1.1); MONO % 4 % (0-9); NEUT # 10.4 x10^3/uL (1.8-7.7); NEUT % 91 % (31-73); PLATELET COUNT 271 x10^3/uL (140-400); RED BLOOD COUNT 3.48 x10^6/uL (4.30-5.70); RED CELL DISTRIBUTION WIDTH 13.1 % (11.5-14.5); WHITE BLOOD COUNT 11.4 x10^3/uL (4.0-11.0)
--- NOTE | 2021-05-27 12:17 | ED.ADGEN ---
Past Medical History Past Medical History: COPD, Hypertension Additional Past Medical Histor: AAA, CAROTID STENOSIS Past Surgical History: No Surgical History Additional Past Surgical Histo: CAROTID ARTERY SURG Smoking Status: Current Every Day Smoker Alcohol Use: Heavy Drug Use: None General Adult EDM: Chief Complaint: MECHANICAL FALL HPI: HPI: Patient is a 76 year old male brought by EMS after a fall. Patient was getting out of the car when he said he lost his footing and fell forward onto his right face. Denies any loss of consciousness. Was able to get up afterwards. Patient states he was on his way to the hospital because having continuing shortness of breath and low oxygen saturations. He was diagnosed with pneumonia has been taking antibiotics for the past 5 days. Patient history of COPD and continues to smoke cigarettes. Denies any blood thinner use, tetanus up-to-date Review of Systems: Review of Systems: All other systems within normal limits except for as noted in the HPI Current Medications: Current Medications Medications (Trade) Dose Ordered Sig/Lyndsey Start Time Stop Time Status Last Admin Dose Admin Ceftriaxone Sodium (Rocephin) 1 gm 1X ONCE 05/27/21 14:30 05/27/21 14:31 DC Doxycycline Hyclate 100 mg/ Dextrose 100 ml @ 50 mls/hr 1X ONCE 05/27/21 14:30 05/27/21 16:29 Fentanyl Citrate (Fentanyl 2ml Vial) 75 mcg 1X ONCE 05/27/21 12:00 05/27/21 12:01 DC 05/27/21 12:00 75 MCG Allergies: Allergies: Allergies Coded Allergies Type Severity Reaction Last Updated Verified No Known Drug Allergies 05/27/21 No Physical Exam: PE: Constitutional: Well developed, well nourished, no acute distress, non-toxic appearance. [] HENT: Normocephalic, right orbital swelling, bilateral external ears normal, nose normal. No kyle Eyes: PERRLA, conjunctiva normal, no discharge. [] Extraocular movements intact Neck: No rigidity, supple, no stridor. [] Cardiovascular: Regular rate and rhythm, brisk cap refill [] Lungs & Thorax: Non labored symmetric respirations, no tachypnea or respiratory distress [] Abdomen: Soft, nondistended. Skin: Warm, dry, no erythema, no rash. Superficial laceration below right eyebrow. Skin avulsion to third finger right hand [] Back: Unremarkable Extremities: No deformities, range of motion grossly intact, no lower extremity edema [] Neurologic: Alert and oriented X 3, no focal deficits noted. [] Psychologic: Affect normal, judgement normal, mood normal. [] Current Patient Data: Labs: Laboratory Tests Test 05/27/21 12:08 White Blood Count 11.4 x10^3/uL (4.0-11.0) H Red Blood Count 3.48 x10^6/uL (4.30-5.70) L Hemoglobin 11.9 g/dL (13.0-17.5) L Hematocrit 35.9 % (39.0-53.0) L Mean Corpuscular Volume 103 fL (79-100) H Mean Corpuscular Hemoglobin 34 pg (25-35) Mean Corpuscular Hemoglobin Concent 33 g/dL (31-37) Red Cell Distribution Width 13.1 % (11.5-14.5) Platelet Count 271 x10^3/uL (140-400) Neutrophils (%) (Auto) 91 % (31-73) H Lymphocytes (%) (Auto) 5 % (24-48) L Monocytes (%) (Auto) 4 % (0-9) Eosinophils (%) (Auto) 0 % (0-3) Basophils (%) (Auto) 0 % (0-3) Neutrophils # (Auto) 10.4 x10^3/uL (1.8-7.7) H Lymphocytes # (Auto) 0.6 x10^3/uL (1.0-4.8) L Monocytes # (Auto) 0.4 x10^3/uL (0.0-1.1) Eosinophils # (Auto) 0.0 x10^3/uL (0.0-0.7) Basophils # (Auto) 0.0 x10^3/uL (0.0-0.2) Sodium Level 138 mmol/L (136-145) Potassium Level 3.3 mmol/L (3.5-5.1) L Chloride Level 104 mmol/L (98-107) Carbon Dioxide Level 31 mmol/L (21-32) Anion Gap 3 (6-14) L Blood Urea Nitrogen 22 mg/dL (8-26) Creatinine 0.8 mg/dL (0.7-1.3) Estimated GFR (Cockcroft-Gault) 94.5 BUN/Creatinine Ratio 28 (6-20) H Glucose Level 155 mg/dL (70-99) H Calcium Level 8.9 mg/dL (8.5-10.1) Total Bilirubin 0.6 mg/dL (0.2-1.0) Aspartate Amino Transferase (AST) 36 U/L (15-37) Alanine Aminotransferase (ALT) 35 U/L (16-63) Alkaline Phosphatase 149 U/L (46-116) H Troponin I High Sensitivity 8 ng/L (4-75) EW-Rbv-L-Type Natriuretic Peptide 434 pg/mL (0-124) H Total Protein 6.2 g/dL (6.4-8.2) L Albumin 2.1 g/dL (3.4-5.0) L Albumin/Globulin Ratio 0.5 (1.0-1.7) L Laboratory Tests 05/27/21 12:08 Laboratory Tests 05/27/21 12:08 Vital Signs: Vital Signs Date Time Temp Pulse Resp B/P (MAP) Pulse Ox O2 Delivery O2 Flow Rate FiO2 05/27/21 14:00 78 16 142/63 (89) 97 Room Air 05/27/21 11:50 98.8 2.0 98.8 EKG: EKG: [] Heart Score: C/O Chest Pain: No Risk Factors: Risk Factors: DM, Current or recent (<one month) smoker, HTN, HLP, family history of CAD, obesity. Risk Scores: Score 0 - 3: 2.5% MACE over next 6 weeks - Discharge Home Score 4 - 6: 20.3% MACE over next 6 weeks - Admit for Clinical Observation Score 7 - 10: 72.7% MACE over next 6 weeks - Early Invasive Strategies Radiology/Procedures: Radiology/Procedures: [facility] [address] [place], [place] [id number] IMAGING REPORT Signed PATIENT: JN CARDONA ACCOUNT: [id number] : 1945 LOCATION: ER AGE: 76 SEX: M EXAM STATUS: REG ER ORD. PHYSICIAN: ROGELIO URBINA MD REASON: fall, right face injury PROCEDURE: CT HEAD AND MAXILLOFACIAL WO CT HEAD AND MAXILLOFACIAL WO History:Fall, right face injury, pain. Comparison: CT head 11/01/2019. CT face 10/12/2019. Technique: Noncontrast CT of the head and maxillofacial bones. Findings: CT HEAD: Small left greater than right frontotemporal subarachnoid hemorrhage. No in traventricular hemorrhage identified. No subdural or epidural hematoma. There is no hydrocephalus or midline shift. Gallagher/white matter differentiation is preserved. The skull and scalp are within normal limits. CT MAXILLOFACIAL: There is a blowout fracture of the right infraorbital wall with minimal displacement. Fracture involves the right infraorbital canal. There is mild adjacent soft tissue swelling within the inferior orbit and superior right maxillary sinus. Initial blood products present within the right maxillary sinus and nasal cavity. Mild right periorbital soft tissue swelling. Redemonstrated partial mastoid effusion on the right similar to comparison. Advanced dental disease with multiple extractions, caries and periapical lucencies. Partially visualized upper cervical spine demonstrates bulky flowing anterior osteophytes with ankylosis of the visualized upper cervical vertebra C2-at least C5. Impression: 1. Small left frontotemporal subarachnoid hemorrhage and trace right frontotemporal subarachnoid hemorrhage. 2. Right inferior orbital wall blowout fracture involving the infraorbital canal. Findings discussed with ROGELIO URBINA MD at 05/27/2021 1:39 PM. FOR INTERNAL CODING PURPOSES RESULT CODE: (C) ---- Exposure: One or more of the following individualized dose reduction techniques were utilized for this examination: 1. Automated exposure control 2. Adjustment of the mA and/or kV according to patient size 3. Use of iterative reconstruction technique. Electronically signed by: Ollie Vasquez MD (05/27/2021 1:42 PM) [id number] DICTATED and SIGNED BY: OLLIE VASQUEZ MD DATE: 05/27/21 1465 [][facility] [address] [place], [place] [id number] IMAGING REPORT Signed PATIENT: JN CARDONA ACCOUNT: [id number] : 1945 LOCATION: ER AGE: 76 SEX: M EXAM STATUS: REG ER ORD. PHYSICIAN: ROGELIO URBINA MD REASON: fall, right chest and hip pain PROCEDURE: CT CHEST ABDOMEN PELVIS WO CT CHEST_ABDOMEN_ AND PELVIS WITHOUT CONTRAST History: Fall, right chest and hip pain. Comparison: CTA chest 05/22/2021. CT chest, abdomen and pelvis 10/12/2019 Technique: CT of the chest, abdomen and pelvis without contrast. Findings: Chest: Pulmonary arteries: Normal caliber. Aorta and great vessels: No aneurysm of the aortic arch or thoracic aorta is seen. Moderate to heavy atherosclerotic calcification. Heart: Normal size. Small pericardial effusion. Moderate to heavy coronary artery calcification. Thyroid: No significant abnormalities. Mediastinum and jacki: No mediastinal masses or adenopathy is seen. Esophagus: The visualized esophagus is normal. Airways, Lungs, Pleura: Central airways are patent. There is redemonstration of a large right lower lobe consolidation with partially loculated right effusion with upper thorax, fissural and subpneumonic components. Mild emphysematous change. Streaky opacities in the left lower lobe similar to comparison. Right middle lobe airspace opacities are improved from comparison. Soft tissue and osseous: Flowing osteophytes throughout the thoracic spine at the anterior and lateral vertebral bodies and ossification of the interspinous ligament. Findings compatible with diffuse idiopathic skeletal hyperostosis. No acute fracture is identified. Abdomen/Pelvis: General abdomen: No ascites. No free air. Liver : Normal in size and attenuation. No masses seen. Gallbladder/Biliary Tree: Normal gallbladder. No intrahepatic or extrahepatic biliary ductal dilatation. Pancreas: Pancreatic atrophy. Spleen: Punctate calcifications consistent with granulomatous disease. Adrenal glands: Normal. Kidneys: No hydronephrosis or hydroureter. Renal calcifications likely vasculature. May also represent nonobstructing nephrolithiasis. Gastrointestinal: Unremarkable Lymph nodes: No lymphadenopathy. Vessels: Fusiform infrarenal aortic aneurysm measuring 4.1 cm diameter by 5.3 cm length, minimally enlarged from 2020. Pelvic Organs: Unremarkable reproductive organs. No pelvic masses. The bladder is unremarkable. Soft tissues: Unremarkable. Bones: Right total hip arthroplasty in expected positioning. Ossification of the sacroiliac joints and long segment flowing osteophytes in the lumbar spine. Degenerative disc and facet disease in the lumbar spine. No acute osseous abnormality. Impression: 1. No acute traumatic findings in the chest, abdomen and pelvis. 2. Large right lower lobe consolidation with moderate multiloculated right pleural effusion. Most likely represents acute pneumonia. Superimposed mass is not excluded. Findings similar, mildly involved from recent comparison CT. Reiterate recommendation for 3 month follow-up CT chest without contrast to ensure resolution. 3. Fusiform infrarenal aortic aneurysm measuring 4.1 cm diameter by 5.3 cm length, mildly enlarged from 2020. ------ Exposure: One or more of the following individualized dose reduction techniques were utilized for this examination: 1. Automated exposure control 2. Adjustment of the mA and/or kV according to patient size 3. Use of iterative reconstruction technique. Electronically signed by: Ollie Vasquez MD (05/27/2021 2:00 PM) [id number] DICTATED and SIGNED BY: OLLIE VASQUEZ MD DATE: 05/27/211341 Course & Med Decision Making: Course & Med Decision Making Pertinent Labs and Imaging studies reviewed. (See chart for details) Patient is subarachnoid hemorrhage, however our neurosurgeon is not available this week. Will need to be transferred. Discussed transfer plan with patient and son, requesting [facility] or [place]. Both hospitals are not able to accept transfers at this time, will transfer to [facility] the [place]. Discussed with trauma and neurosurgery there. [] Dragon Disclaimer: Reynaldo Disclaimer: This electronic medical record was generated, in whole or in part, using a voice recognition dictation system. Departure Departure Impression: Primary Impression: SAH (subarachnoid hemorrhage) Additional Impressions: Fracture of orbital floor, blow-out, right, closed Pneumonia involving right lung Disposition: 02 SHORT TERM HOSPITAL Condition: GUARDED Referrals: LOI DAVIS MD (PCP) Problem Qualifiers ROGELIO URBINA MD May 27, 2021 12:17
[2021-05-27 12:26] LABS: CALCIUM 8.9 mg/dL (8.5-10.1); CREATININE 0.8 mg/dL (0.7-1.3); GFR 94.5; POTASSIUM 3.3 mmol/L (3.5-5.1)
[2021-05-27 12:32] LABS: ALBUMIN 2.1 g/dL (3.4-5.0); ALBUMIN/GLOBULIN RATIO 0.5 (1.0-1.7); TOTAL BILIRUBIN 0.6 mg/dL (0.2-1.0); TOTAL PROTEIN 6.2 g/dL (6.4-8.2)
--- NOTE | 2021-05-27 13:45 | RAD ---
CT HEAD AND MAXILLOFACIAL WO History:Fall, right face injury, pain. Comparison: CT head 11/01/2019. CT face 10/12/2019. Technique: Noncontrast CT of the head and maxillofacial bones. Findings: CT HEAD: Small left greater than right frontotemporal subarachnoid hemorrhage. No intraventricular hemorrhage identified. No subdural or epidural hematoma. There is no hydrocephalus or midline shift. Gallagher/white matter differentiation is preserved. The skull and scalp are within normal limits. CT MAXILLOFACIAL: There is a blowout fracture of the right infraorbital wall with minimal displacement. Fracture involv es the right infraorbital canal. There is mild adjacent soft tissue swelling within the inferior orbi t and superior right maxillary sinus. Initial blood products present within the right maxillary sinus and nasal cavity. Mild right periorbital soft tissue swelling. Redemonstrated partial mastoid effusion on the right similar to comparison. Advanced dental disease with multiple extractions, caries and periapical lucencies. Partially visualized upper cervical spine demonstrates bulky flowing anterior osteophytes with ankylo sis of the visualized upper cervical vertebra C2-at least C5. Impression: 1. Small left frontotemporal subarachnoid hemorrhage and trace right frontotemporal subarachnoid hem orrhage. 2. Right inferior orbital wall blowout fracture involving the infraorbital canal. Findings discussed with ORGELIO URBINA MD at 05/27/2021 1:39 PM. FOR INTERNAL CODING PURPOSES RESULT CODE: (C) ---- Exposure: One or more of the following individualized dose reduction techniques were utilized for thi s examination: 1. Automated exposure control 2. Adjustment of the mA and/or kV according to patient size 3. Use of iterative reconstruction technique. Electronically signed by: Ollie Sanchez MD (05/27/2021 1:42 PM) [id number]
--- NOTE | 2021-05-27 14:03 | RAD ---
CT CHEST_ABDOMEN_ AND PELVIS WITHOUT CONTRAST History: Fall, right chest and hip pain. Comparison: CTA chest 05/22/2021. CT chest, abdomen and pelvis 10/12/2019 Technique: CT of the chest, abdomen and pelvis without contrast. Findings: Chest: Pulmonary arteries: Normal caliber. Aorta and great vessels: No aneurysm of the aortic arch or thoracic aorta is seen. Moderate to heavy atherosclerotic calcification. Heart: Normal size. Small pericardial effusion. Moderate to heavy coronary artery calcification. Thyroid: No significant abnormalities. Mediastinum and jacki: No mediastinal masses or adenopathy is seen. Esophagus: The visualized esophagus is normal. Airways, Lungs, Pleura: Central airways are patent. There is redemonstration of a large right lower l obe consolidation with partially loculated right effusion with upper thorax, fissural and subpneumoni c components. Mild emphysematous change. Streaky opacities in the left lower lobe similar to comparis on. Right middle lobe airspace opacities are improved from comparison. Soft tissue and osseous: Flowing osteophytes throughout the thoracic spine at the anterior and latera l vertebral bodies and ossification of the interspinous ligament. Findings compatible with diffuse id iopathic skeletal hyperostosis. No acute fracture is identified. Abdomen/Pelvis: General abdomen: No ascites. No free air. Liver : Normal in size and attenuation. No masses seen. Gallbladder/Biliary Tree: Normal gallbladder. No intrahepatic or extrahepatic biliary ductal dilatati on. Pancreas: Pancreatic atrophy. Spleen: Punctate calcifications consistent with granulomatous disease. Adrenal glands: Normal. Kidneys: No hydronephrosis or hydroureter. Renal calcifications likely vasculature. May also represen t nonobstructing nephrolithiasis. Gastrointestinal: Unremarkable Lymph nodes: No lymphadenopathy. Vessels: Fusiform infrarenal aortic aneurysm measuring 4.1 cm diameter by 5.3 cm length, minimally en larged from 2020. Pelvic Organs: Unremarkable reproductive organs. No pelvic masses. The bladder is unremarkable. Soft tissues: Unremarkable. Bones: Right total hip arthroplasty in expected positioning. Ossification of the sacroiliac joints an d long segment flowing osteophytes in the lumbar spine. Degenerative disc and facet disease in the gerri mbar spine. No acute osseous abnormality. Impression: 1. No acute traumatic findings in the chest, abdomen and pelvis. 2. Large right lower lobe consolidation with moderate multiloculated right pleural effusion. Most li sandra represents acute pneumonia. Superimposed mass is not excluded. Findings similar, mildly involved from recent comparison CT. Reiterate recommendation for 3 month follow-up CT chest without contrast to ensure resolution. 3. Fusiform infrarenal aortic aneurysm measuring 4.1 cm diameter by 5.3 cm length, mildly enlarged f rom 2019. ------ Exposure: One or more of the following individualized dose reduction techniques were utilized for thi s examination: 1. Automated exposure control 2. Adjustment of the mA and/or kV according to patient size 3. Use of iterative reconstruction technique. Electronically signed by: Ollie Sanchez MD (05/27/2021 2:00 PM) [id number]
[2021-05-27] MEDS ORDERED: DOXYCYCLINE HYCLATE 100 MG in IV DEXTROSE 5% 100ML 100 ML IV ONE (14:30)
[2021-05-27] MEDS ORDERED: cefTRIAXone IV Push 1 GM VIAL. IVP ONE (14:30)
[2021-05-27 16:49] VITALS: BP 143/81
--- NOTE | 2021-05-27 18:05 | EKG ---
[facility] [address] [place] [id number] Test Date: 2021-05-27 Test Time: 12:28:40 Pat Name: JN CARDONA Department: Room: Gender: Media Librarian: : 1945 Requested By: ROGELIO URBINA Order Number: [id number] Reading MD: Measurements Intervals [place] Rate: 92 P: 71 AL: 150 QRS: 80 QRSD: 80 T: 51 QT: 334 QTc: 418 Interpretive Statements SINUS RHYTHM NORMAL ECG RI6.02 No previous ECG available for comparison
== END 2021-05-27 16:49 | disposition short-term general hospital (02) ==
LOC: ER 11:42
DX: S02.31XA Fracture of orbital floor, right side, initial encounter for closed fracture (principal); I60.9 Nontraumatic subarachnoid hemorrhage, unspecified; I10 Essential (primary) hypertension; J18.9 Pneumonia, unspecified organism; J44.9 Chronic obstructive pulmonary disease, unspecified; R51.9 Headache, unspecified; M54.2 Cervicalgia; F17.200 Nicotine dependence, unspecified, uncomplicated; F10.20 Alcohol dependence, uncomplicated; Y90.9 Presence of alcohol in blood, level not specified; W18.39XA Other fall on same level, initial encounter; Y93.89 Activity, other specified; Y92.89 Other specified places as the place of occurrence of the external cause; Y99.8 Other external cause status
CPT/HCPCS: 36415; 70450; 70486; 71250; 74176; 80053; 83880; 84484; 85025; 93005; 96365; 96375; 99285; J0696; J3010; J3490; J7060